=== PATIENT | female | born 1930 | race Caucasian/White ===

== ENCOUNTER 2017-07-10 08:24 | Inpatient (IN) | payer MEDICARE, OTHER ==
[~2017-07-10] VITALS: Ht 162.6 cm; Wt 63.0 kg
[2017-07-10] VITALS (14 sets, daily range): BP systolic 114–163; BP diastolic 53–72; PULSE 70–83; RESP 14–30; TEMP 98.7–101.5; O2SAT 89–95
[2017-07-10 08:56] LABS: AUTOMATED NEUTROPHIL # 9.1 TH/MM3 (1.8-7.7); BASOPHIL % 0.3 % (0.0-2.0); LYMPH % 5.7 % (9.0-44.0); LYMPHOCYTE # 0.6 TH/MM3 (1.0-4.8); MEAN CORPUSCULAR HEMOGLOBIN 28.1 PG (27.0-34.0); MEAN CORPUSCULAR HGB CONC 32.3 % (32.0-36.0); MONO % 8.8 % (0.0-8.0); NEUT % 85.2 % (16.0-70.0); PLATELET COUNT 150 TH/MM3 (150-450); RED BLOOD COUNT 3.91 MIL/MM3 (4.00-5.30); RED CELL DISTRIBUTION WIDTH 16.4 % (11.6-17.2); WHITE BLOOD COUNT 10.7 TH/MM3 (4.0-11.0)
[2017-07-10 08:57] LABS: BLOOD GAS VENOUS BASE EXCESS 5.2 mmol/L (-2-2); BLOOD GAS VENOUS HCO3 31 mmol/L (22-26); BLOOD GAS VENOUS O2 CONTENT 6.1 Vol % (9.0-17.0); BLOOD GAS VENOUS O2 HGB SAT 41 % (70-76); BLOOD GAS VENOUS PCO2 58 mmHg (44-48); BLOOD GAS VENOUS PO2 27 mmHg (35-40); BLOOD GAS VENOUS pH 7.34 (7.360-7.400); CRITICAL VALUE YES; DRAW SITE IV; LITER FLOW 6 L/M; OXYGEN DEVICE MASK; STAT YES; TEMP CORR TO 98.6
[2017-07-10 09:00] LABS: HEMO FLAGS AUTO DIFF
--- NOTE | 2017-07-10 09:00 | RADRPT ---
EXAM DATE/TIME: 07/10/2017 08:53 [place] COMPARISON: No previous studies available for comparison. INDICATIONS : Shortness of breath. MEDICAL HISTORY : Chronic obstructive pulmonary disease. Hypercholesterolemia. Congestive heart failure. Diabetes. SURGICAL HISTORY : Appendectomy. Cholecystectomy. Tonsillectomy. ENCOUNTER: Initial ACUITY: 1 day PAIN SCORE: 0/10 LOCATION: Bilateral chest FINDINGS: Portable AP view of the chest demonstrates a normal-sized cardiac silhouette with calcification of th e aorta. There is interstitial prominence bilaterally with patchy somewhat nodular airspace opacity i n the right upper to midlung zone. There is blunting of the left costophrenic sulcus. No pneumothorax is visualized. Bones and soft tissues demonstrate no acute finding. CONCLUSION: 1. Subtle patchy to mildly nodular airspace opacity in the right upper lung zone. Suggest correlating with any prior imaging studies that could confirm longer-term stability. If none are available sugge st either a followup chest x-ray to confirm resolution or followup CT. 2. Slight blunting of the left costophrenic angle may represent pleural scar or trace pleural fluid. Artie Branham MD on July 10, 2017 at 8:56 Board Certified Radiologist. This report was verified electronically.
[2017-07-10] MEDS ORDERED: MAPA325T PO (09:02)
[2017-07-10] MEDS ORDERED: ALBU0.08 NEB (09:04)
[2017-07-10] MEDS ORDERED: BISA10SU3 RECTAL (09:04)
[2017-07-10] MEDS ORDERED: CLON0.1T PO (09:04)
[2017-07-10 09:07] LABS: APTT (PATIENT) 26.1 SEC (24.3-30.1); INTERNATIONAL NORMALIZED RATIO 0.9 RATIO
--- NOTE | 2017-07-10 09:07 | PD ---
HPI Chief Complaint: Respiratory Distress Time Seen by Provider: 08:36 Travel History International Travel<30 days: No Contact w/Intl Traveler<30days: No Traveled to known affect area: No History of Present Illness HPI Patient is an 87-year-old female presents to emergency department from [facility] for evaluation of hypoxia. 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 She cannot provide any history. Per EMS the patient's sats of been in the 90s and they have been giving her breathing treatments all day yesterday and this was unsuccessful so the called 911 this morning. EMS arrived to find the patient with a room air saturation of 85%. They administered Lasix 80 mg as well as 2 DuoNeb's prior to arrival. No fever reported by EMS. PFSH Past Medical History High Cholesterol: Yes Congestive Heart Failure: Yes COPD: Yes Diabetes: Yes Patient Takes Glucophage: No Tetanus Vaccination: Unknown Influenza Vaccination: No Past Surgical History Appendectomy: Yes Cholecystectomy: Yes Hysterectomy: Yes Tonsillectomy: Yes Social History Alcohol Use: No Tobacco Use: No Substance Use: No Allergies-Medications (Allergen,Severity, Reaction): Coded Allergies: Latex, Natural Rubber (Verified Allergy, Intermediate, REDNESS, 07/10/17) Penicillins (Verified Allergy, Intermediate, HIVES, 07/10/17) Sulfa (Sulfonamide Antibiotics) (Verified Allergy, Intermediate, HIVES, 07/10/17) codeine (Verified Allergy, Intermediate, HIVES, 07/10/17) morphine (Verified Allergy, Intermediate, HIVES, 07/10/17) blueberry (Verified Allergy, Unknown, 07/10/17) tomato (Verified Allergy, Unknown, 07/10/17) Reported Meds & Prescriptions Reported Meds & Active Scripts Active Reported Triamcinolone Topical (Triamcinolone Acetonide) 0.1 % Oint 1 Applic TOPICAL BID Artificial Tears Opth Oint (White Petrolatum-Mineral Oil Opth Oint 83-15%) 83-15 % Oint 1 Applic EACH EYE HS Pull down lower eyelid & apply 1/4 inch to inside of eyelid. Xanax (Alprazolam) 0.25 Mg Tab 0.25 Mg PO Q12HR PRN Senna-Tabs (Sennosides) 8.6 Mg Tab 8.6 Mg PO BID Promethazine (Promethazine HCl) 12.5 Mg Tab 25 Mg PO Q4H PRN Potassium Chloride ER (Potassium Chloride) 10 Meq Cap 10 Meq PO BID Hildreth (Hydrocodone-Acetaminophen) 10-325 Mg Tab 1 Tab PO Q6H PRN Nitroglycerin SL (Nitroglycerin) 0.4 Mg Subl 0.4 Mg SL DIRECTED PRN ONE TABLET UNDER THE TONGUE NEEDED FOR CHEST PAIN, MAY REPEAT EVERY FIVE MINUTES FOR A TOTAL OF 3 DOSES OR CALL 911 IF NO RELIEF Mirtazapine 30 Mg Tab 30 Mg PO HS Milk of Magnesia Liq (Magnesium Hydroxide) 400 Mg/5 Ml Susp 30 Ml PO ONCE Metoprolol Tartrate 25 Mg Tab 25 Mg PO BID Metformin (Metformin HCl) 500 Mg Tab 1,000 Mg PO DAILY With a meal Levothyroxine (Levothyroxine Sodium) 100 Mcg Tab 100 Mcg PO DAILY Guaifenesin DM Liq (Guaifenesin-Dextromethorphan Liq) 10-100 Mg/5 Ml Liq 10 Ml PO QID PRN Gabapentin 300 Mg Cap 600 Mg PO QID Furosemide 40 Mg Tab 40 Mg PO DAILY Escitalopram (Escitalopram Oxalate) 20 Mg Tab 20 Mg PO DAILY Clonidine (Clonidine HCl) 0.1 Mg Tab 0.1 Mg PO Q4HR PRN Bisacodyl Supp (Bisacodyl) 10 Mg Supp 10 Mg RECTAL DAILY PRN Albuterol Neb (Albuterol Sulfate) 2.5 Mg/3 Ml Neb 2.5 Mg NEB TID NEB PRN Mapap (Acetaminophen) 325 Mg Tab 650 Mg PO Q4-6H PRN Review of Systems ROS Limitations: Altered Mental Status Physical Exam Narrative GENERAL: Well-developed well-nourished, no obvious distress, elderly woman. SKIN: Focused skin assessment warm/dry. HEAD: Atraumatic. Normocephalic. EYES: Pupils equal and round. No scleral icterus. No injection or drainage. ENT: No nasal bleeding or discharge. Mucous membranes pink and moist. NECK: Trachea midline. No JVD. CARDIOVASCULAR: Regular rate and rhythm. No murmur appreciated. RESPIRATORY: No accessory muscle use. Rales expiratory only throughout all sotelo, probably radiation from upper airway. Clear on inspiration. Breath sounds equal bilaterally. GASTROINTESTINAL: Abdomen soft, non-tender, nondistended. Hepatic and splenic margins not palpable. MUSCULOSKELETAL: No obvious deformities. No clubbing. No cyanosis. No edema. NEUROLOGICAL: Awake and alert. Follows commands in all 4 extremities, purposeful movement. Current nerves appear to be intact. GCS 14 for mild confusion.. PSYCHIATRIC: Pleasantly confused, giggling, GCS 14. Data Data Last Documented VS Vital Signs Date Time Temp Pulse Resp B/P (MAP) Pulse Ox O2 Delivery O2 Flow Rate FiO2 07/10/17 08:52 79 14 135/60 (85) 89 Non-Rebreather 15.00 07/10/17 08:31 101.5 Orders Orders Electrocardiogram (07/10/17 08:36) Complete Blood Count With Diff (07/10/17 08:36) Comprehensive Metabolic Panel (07/10/17 08:36) Prothrombin Time / Inr (Pt) (07/10/17 08:36) Act Partial Throm Time (Ptt) (07/10/17 08:36) Lactic Acid Sepsis Protocol (07/10/17 08:36) Magnesium (Mg) (07/10/17 08:36) Phosphorus (Po4) (07/10/17 08:36) Troponin I (07/10/17 08:36) Urinalysis - C+S If Indicated (07/10/17 08:36) Blood Culture (07/10/17 08:36) Chest, Single Ap (07/10/17 08:36) Blood Glucose (07/10/17 08:36) Ecg Monitoring (07/10/17 08:36) Iv Access Insert/Monitor (07/10/17 08:36) Oximetry (07/10/17 08:36) Oxygen Administration (07/10/17 08:36) Blood Gas Venous (Vbg) (07/10/17 08:36) B-Type Natriuretic Peptide (07/10/17 08:36) Vancomycin Inj (Vancomycin Inj) (07/10/17 09:15) Aztreonam Inj (Azactam Inj) (07/10/17 09:15) Urinary Catheter Management SHELLY.Q8H (07/10/17 09:05) Sodium Chlorid 0.9% 500 Ml Inj (Ns 500 M (07/10/17 10:00) Aspirin Chew (Aspirin Chew) (07/10/17 10:00) Urine Culture (07/10/17 09:40) Admit Order (Ed Use Only) (07/10/17 ) Labs Laboratory Tests Test 07/10/17 08:36 07/10/17 08:43 07/10/17 08:45 07/10/17 09:40 White Blood Count 10.7 TH/MM3 Red Blood Count 3.91 MIL/MM3 Hemoglobin 11.0 GM/DL Hematocrit 34.0 % Mean Corpuscular Volume 87.0 FL Mean Corpuscular Hemoglobin 28.1 PG Mean Corpuscular Hemoglobin Concent 32.3 % Red Cell Distribution Width 16.4 % Platelet Count 150 TH/MM3 Mean Platelet Volume 9.1 FL Neutrophils (%) (Auto) 85.2 % Lymphocytes (%) (Auto) 5.7 % Monocytes (%) (Auto) 8.8 % Eosinophils (%) (Auto) 0.0 % Basophils (%) (Auto) 0.3 % Neutrophils # (Auto) 9.1 TH/MM3 Lymphocytes # (Auto) 0.6 TH/MM3 Monocytes # (Auto) 0.9 TH/MM3 Eosinophils # (Auto) 0.0 TH/MM3 Basophils # (Auto) 0.0 TH/MM3 CBC Comment AUTO DIFF Differential Total Cells Counted 100 Neutrophils % (Manual) 70 % Band Neutrophils % 12 % Lymphocytes % 7 % Monocytes % 11 % Neutrophils # (Manual) 8.8 TH/MM3 Differential Comment FINAL DIFF MANUAL Platelet Estimate NORMAL Platelet Morphology Comment NORMAL Ovalocytes 1+ Prothrombin Time 10.0 SEC Prothromb Time International Ratio 0.9 RATIO Activated Partial Thromboplast Time 26.1 SEC Blood Urea Nitrogen 27 MG/DL Creatinine 1.36 MG/DL Random Glucose 182 MG/DL Total Protein 6.4 GM/DL Albumin 2.5 GM/DL Calcium Level 8.6 MG/DL Phosphorus Level 2.2 MG/DL Magnesium Level 1.9 MG/DL Alkaline Phosphatase 89 U/L Aspartate Amino Transf (AST/SGOT) 34 U/L Alanine Aminotransferase (ALT/SGPT) 26 U/L Total Bilirubin 0.8 MG/DL Sodium Level 136 MEQ/L Potassium Level 4.6 MEQ/L Chloride Level 98 MEQ/L Carbon Dioxide Level 30.2 MEQ/L Anion Gap 8 MEQ/L Estimat Glomerular Filtration Rate 37 ML/MIN Troponin I 0.26 NG/ML B-Type Natriuretic Peptide 323 PG/ML Lactic Acid Level 2.5 mmol/L Blood Gas Puncture Site IV Blood Gas Patient Temperature 98.6 Venous Blood pH 7.34 Venous Blood Partial Pressure CO2 58 mmHg Venous Blood Partial Pressure O2 27 mmHg Venous Blood HCO3 31 mmol/L Venous Blood Oxygen Saturation 41 % Venous Blood Oxygen Content 6.1 Vol % Venous Blood Base Excess 5.2 mmol/L Oxygen Delivery Device MASK Blood Gas Liter Flow 6 L/M Urine Color YELLOW Urine Turbidity CLEAR Urine pH 5.5 Urine Specific [place] 1.010 Urine Protein TRACE mg/dL Urine Glucose (UA) NEG mg/dL Urine Ketones NEG mg/dL Urine Occult Blood NEG Urine Nitrite NEG Urine Bilirubin NEG Urine Urobilinogen LESS THAN 2.0 MG/DL Urine Leukocyte Esterase NEG Urine RBC LESS THAN 1 /hpf Urine WBC LESS THAN 1 /hpf Urine Amorphous Sediment FEW Urine Bacteria RARE /hpf Microscopic Urinalysis Comment CATH-CULTURE IND MDM Medical Decision Making Medical Screen Exam Complete: Yes Emergency Medical Condition: Yes Differential Diagnosis Pneumonia, hypoxic respiratory failure, hypercapnic respiratory failure, COPD exacerbation. Narrative Course Patient roomed in emergency department, was started on simple mask which maintain oxygen saturation greater than 95%. She does have an acute on chronic hypercapnic respiratory failure with a pH 7.34 and a PCO2 of 58. Patient does have a minimal right upper lobe infiltrate, she was started on vancomycin and exact him given this a healthcare associated pneumonia. White blood cell count is actually normal. She was given small amount of fluid is a lactic acid is only 2.2 and she does not appear to have any hemodynamic instability. She does have a history of CHF. She has had good urine output after Tejeda catheter was replaced. Patient does have a DNR [facility] her chart from [facility]. Patient was discussed with Dr. Tolbert for admission to the ICU. Critical Care Narrative Aggregate critical care time was 35 minutes. Time to perform other separately billable procedures was not included in the critical care time. My time did not include minutes spent treating any other patients simultaneously or on activities that did not directly contribute to the patient's treatment. The services I provided to this patient were to treat and/or prevent clinically significant deterioration that could result in: , dyspnea, organ failure. I provided critical care services requiring my management, as noted below: Chart data review, documentation time, medication orders and management, vital sign assessments/reviewing monitor data, ordering and reviewing lab tests, ordering and interpreting/reviewing x-rays and diagnostic studies, care of the patient and discussion of the patient with the admitting physicians. Diagnosis Primary Impression: Respiratory failure Qualified Codes: J96.01 - Acute respiratory failure with hypoxia; J96.02 - Acute respiratory failure with hypercapnia Additional Impressions: Respiratory failure with hypoxia Qualified Codes: J96.01 - Acute respiratory failure with hypoxia Respiratory failure without hypercapnia Pneumonia Qualified Codes: J18.1 - Lobar pneumonia, unspecified organism Admitting Information Admitting Physician Requests: Admit Condition: Stable Lux Hemphill MD Jul 10, 2017 09:07
[2017-07-10] MEDS ORDERED: GABA300C5 PO (09:12)
[2017-07-10] MEDS ORDERED: SENN8.6T36 PO (09:12)
[2017-07-10] MEDS ORDERED: METO25TA3 PO (09:12)
[2017-07-10] MEDS ORDERED: LEVO100T5 PO (09:12)
[2017-07-10] MEDS ORDERED: HYDR-3366 PO (09:12)
[2017-07-10] MEDS ORDERED: MILKSUS PO (09:12)
[2017-07-10] MEDS ORDERED: ESCI20TA PO (09:12)
[2017-07-10] MEDS ORDERED: POTA10CA PO (09:12)
[2017-07-10] MEDS ORDERED: GUAISYP7 PO (09:12)
[2017-07-10] MEDS ORDERED: TRIAM.1%T TOPICAL (09:12)
[2017-07-10] MEDS ORDERED: MIRT30TA PO (09:12)
[2017-07-10] MEDS ORDERED: PROM12.54 PO (09:12)
[2017-07-10] MEDS ORDERED: FURO40TA PO (09:12)
[2017-07-10] MEDS ORDERED: WHIT15OI EACH EYE (09:12)
[2017-07-10] MEDS ORDERED: ALPR.25 PO (09:12)
[2017-07-10] MEDS ORDERED: METF500T PO (09:12)
[2017-07-10] MEDS ORDERED: NITR1SUB3 SL (09:12)
[2017-07-10 09:14] LABS: ALT (GPT) 26 U/L (10-53); ANION GAP 8 MEQ/L (5-15); AST (GOT) 34 U/L (15-37); BICARBONATE 30.2 MEQ/L (21.0-32.0); BLOOD UREA NITROGEN 27 MG/DL (7-18); CHLORIDE 98 MEQ/L (98-107); GLOMERULAR FILTRATION RATE 37 ML/MIN (>89); MAGNESIUM 1.9 MG/DL (1.5-2.5); POTASSIUM 4.6 MEQ/L (3.5-5.1); SODIUM (NA) 136 MEQ/L (136-145)
[2017-07-10] MEDS ORDERED: VANCOMYCIN INJ 1,000 MG in SODIUM CHLOR 0.9% 250 ML INJ 250 ML IV ONE (09:15)
[2017-07-10] MEDS ORDERED: AZTREONAM INJ 2,000 MG in SODIUM CHLORIDE 0.9% INJ 100 ML IV ONE (09:15)
[2017-07-10 09:18] LABS: ALKALINE PHOSPHATASE 89 U/L (45-117); TOTAL BILIRUBIN ADULT 0.8 MG/DL (0.2-1.0)
[2017-07-10 09:29] LABS: BANDS 12 % (0-6); NEUTROPHIL # MANUAL DIFF 8.8 TH/MM3 (1.8-7.7); OVALOCYTES 1+ (NORMAL); PLATELET ESTIMATE SMEAR NORMAL (NORMAL); PLATELET MORPHOLOGY NORMAL (NORMAL); POLYS (SEG NEUTROPHILS) 70 % (16-70); SCAN/DIFF FINAL DIFF MANUAL; WBC DIFF SAMPLE 100
[2017-07-10] MEDS ORDERED: SODIUM CHLORID 0.9% 500 ML INJ 500 ML IV ONE (10:00)
[2017-07-10] MEDS ORDERED: ASPIRIN 81 MG CHEW TAB CHEW ONE (10:00)
[2017-07-10 10:20] LABS: BACTERIA, URINE RARE /hpf; BLOOD, URINE NEG (NEG); GLUCOSE,URINE NEG (NEG); KETONE, URINE NEG (NEG); NITRITE,URINE NEG (NEG); PH, URINE 5.5 (5.0-8.5); URINE COLOR YELLOW (YELLW/STRAW)
[2017-07-10 10:21] LABS: COMMENT (UR) CATH-CULTURE IND; CULTURE IF INDICATED CATH CULTURE IND
[2017-07-10 10:52] LABS: LACTIC ACID GHOST NOT REPORTABLE
[2017-07-10] MEDS ORDERED: SODIUM CHLORIDE 0.9% FLUSH 10 ML FLUSH IV FLUSH PRN (11:30)
[2017-07-10] MEDS ORDERED: ACETAMINOPHEN 325 MG TAB PO PRN ×2 (11:30)
[2017-07-10] MEDS ORDERED: RESP: ALBUTEROL 2.5 MG/IPRATROPIUM 0.5 MG NEB (PRN) NEB (11:30)
[2017-07-10] MEDS ORDERED: NALOXONE HCL 0.4 MG/ML AMP IV PRN ×2 (11:30→12:45)
--- NOTE | 2017-07-10 12:01 | HHI.HP ---
[facility] Unknown Admission Diagnosis Hypoxic respiratory failure, PNA. Diagnoses: (1) HCAP (healthcare-associated pneumonia) (2) Respiratory failure with hypoxia Chief Complaint: Shortness of breath Travel History International Travel<30 Days: No Contact w/Intl Traveler <30 Da: No Traveled to Known Affected Are: No History of Present Illness Patient although can open her eyes she is unable to communicate at this time during my exam and history is obtained from ED report and chart review below: "Patient is an 87-year-old female presents to emergency department from shelter for evaluation of hypoxia. 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 She cannot provide any history. Per EMS the patient's sats of been in the 90s and they have been giving her breathing treatments all day yesterday and this was unsuccessful so the called 911 this morning. EMS arrived to find the patient with a room air saturation of 85%. They administered Lasix 80 mg as well as 2 DuoNeb's prior to arrival. No fever reported by EMS." Review of Systems ROS Limitations: Altered Mental Status Past Family Social History Past Medical History High Cholesterol: Yes Congestive Heart Failure: Yes COPD: Yes Diabetes: Yes Past Surgical History Appendectomy: Yes Cholecystectomy: Yes Hysterectomy: Yes Tonsillectomy: Yes Reported Medications Triamcinolone Topical (Triamcinolone Acetonide) 0.1 % Oint 1 Applic TOPICAL BID Artificial Tears Opth Oint (White Petrolatum-Mineral Oil Opth Oint 83-15%) 83-15 % Oint 1 Applic EACH EYE HS Pull down lower eyelid & apply 1/4 inch to inside of eyelid. Xanax (Alprazolam) 0.25 Mg Tab 0.25 Mg PO Q12HR PRN Senna-Tabs (Sennosides) 8.6 Mg Tab 8.6 Mg PO BID Promethazine (Promethazine HCl) 12.5 Mg Tab 25 Mg PO Q4H PRN Potassium Chloride ER (Potassium Chloride) 10 Meq Cap 10 Meq PO BID Mcalester (Hydrocodone-Acetaminophen) 10-325 Mg Tab 1 Tab PO Q6H PRN Nitroglycerin SL (Nitroglycerin) 0.4 Mg Subl 0.4 Mg SL DIRECTED PRN ONE TABLET UNDER THE TONGUE NEEDED FOR CHEST PAIN, MAY REPEAT EVERY FIVE MINUTES FOR A TOTAL OF 3 DOSES OR CALL 911 IF NO RELIEF Mirtazapine 30 Mg Tab 30 Mg PO HS Milk of Magnesia Liq (Magnesium Hydroxide) 400 Mg/5 Ml Susp 30 Ml PO ONCE Metoprolol Tartrate 25 Mg Tab 25 Mg PO BID Metformin (Metformin HCl) 500 Mg Tab 1,000 Mg PO DAILY With a meal Levothyroxine (Levothyroxine Sodium) 100 Mcg Tab 100 Mcg PO DAILY Guaifenesin DM Liq (Guaifenesin-Dextromethorphan Liq) 10-100 Mg/5 Ml Liq 10 Ml PO QID PRN Gabapentin 300 Mg Cap 600 Mg PO QID Furosemide 40 Mg Tab 40 Mg PO DAILY Escitalopram (Escitalopram Oxalate) 20 Mg Tab 20 Mg PO DAILY Clonidine (Clonidine HCl) 0.1 Mg Tab 0.1 Mg PO Q4HR PRN Bisacodyl Supp (Bisacodyl) 10 Mg Supp 10 Mg RECTAL DAILY PRN Albuterol Neb (Albuterol Sulfate) 2.5 Mg/3 Ml Neb 2.5 Mg NEB TI Allergies: Coded Allergies: Latex, Natural Rubber (Verified Allergy, Intermediate, REDNESS, 07/10/17) Penicillins (Verified Allergy, Intermediate, HIVES, 07/10/17) Sulfa (Sulfonamide Antibiotics) (Verified Allergy, Intermediate, HIVES, 07/10/17) codeine (Verified Allergy, Intermediate, HIVES, 07/10/17) morphine (Verified Allergy, Intermediate, HIVES, 07/10/17) blueberry (Verified Allergy, Unknown, 07/10/17) tomato (Verified Allergy, Unknown, 07/10/17) Family History Family history not relevant secondary to patient mentation and age Social History Alcohol Use: No Tobacco Use: No Substance Use: No Physical Exam Vital Signs Vital Signs Date Time Temp Pulse Resp B/P (MAP) Pulse Ox O2 Delivery O2 Flow Rate FiO2 07/10/17 08:52 79 14 135/60 (85) 89 Non-Rebreather 15.00 07/10/17 08:51 87 Venturi Mask 7.00 07/10/17 08:47 84 Nasal Cannula 6.00 07/10/17 08:44 90 Nasal Cannula 2.00 07/10/17 08:40 83 14 93 Aerosol Mask 10.00 07/10/17 08:31 101.5 83 20 131/72 (91) Physical Exam GENERAL: This is an elderly patient appears to be in no acute distress SKIN: No rashes, ecchymoses or lesions. Cool and dry. HEAD: Atraumatic. Normocephalic. No temporal or scalp tenderness. EYES: Pupils equal round and reactive. Extraocular motions intact. No scleral icterus. No injection or drainage. ENT: Nose without bleeding, purulent drainage or septal hematoma. Throat without erythema, tonsillar hypertrophy or exudate. Uvula midline. Airway patent. NECK: Trachea midline. No JVD or lymphadenopathy. Supple, nontender, no meningeal signs. CARDIOVASCULAR: Regular rate and rhythm without murmurs, gallops, or rubs. RESPIRATORY: Clear to auscultation. Breath sounds decreased bilaterally. No wheezes, rales, or rhonchi. GASTROINTESTINAL: Abdomen soft, non-tender, nondistended. No hepato-splenomegaly , or palpable masses. No guarding. MUSCULOSKELETAL: Extremities without clubbing, cyanosis, or edema. No joint tenderness, effusion, or edema noted. No calf tenderness. Negative Homans sign bilaterally. NEUROLOGICAL: Lethargic and does not follow commands Motor and sensory grossly within normal limits. Laboratory Laboratory Tests Test 07/10/17 08:36 07/10/17 08:43 07/10/17 08:45 07/10/17 09:40 White Blood Count 10.7 Red Blood Count 3.91 Hemoglobin 11.0 Hematocrit 34.0 Mean Corpuscular Volume 87.0 Mean Corpuscular Hemoglobin 28.1 Mean Corpuscular Hemoglobin Concent 32.3 Red Cell Distribution Width 16.4 Platelet Count 150 Mean Platelet Volume 9.1 Neutrophils (%) (Auto) 85.2 Lymphocytes (%) (Auto) 5.7 Monocytes (%) (Auto) 8.8 Eosinophils (%) (Auto) 0.0 Basophils (%) (Auto) 0.3 Neutrophils # (Auto) 9.1 Lymphocytes # (Auto) 0.6 Monocytes # (Auto) 0.9 Eosinophils # (Auto) 0.0 Basophils # (Auto) 0.0 CBC Comment AUTO DIFF Differential Total Cells Counted 100 Neutrophils % (Manual) 70 Band Neutrophils % 12 Lymphocytes % 7 Monocytes % 11 Neutrophils # (Manual) 8.8 Differential Comment FINAL DIFF MANUAL Platelet Estimate NORMAL Platelet Morphology Comment NORMAL Ovalocytes 1+ Prothrombin Time 10.0 Prothromb Time International Ratio 0.9 Activated Partial Thromboplast Time 26.1 Blood Urea Nitrogen 27 Creatinine 1.36 Random Glucose 182 Total Protein 6.4 Albumin 2.5 Calcium Level 8.6 Phosphorus Level 2.2 Magnesium Level 1.9 Alkaline Phosphatase 89 Aspartate Amino Transf (AST/SGOT) 34 Alanine Aminotransferase (ALT/SGPT) 26 Total Bilirubin 0.8 Sodium Level 136 Potassium Level 4.6 Chloride Level 98 Carbon Dioxide Level 30.2 Anion Gap 8 Estimat Glomerular Filtration Rate 37 Troponin I 0.26 B-Type Natriuretic Peptide 323 Lactic Acid Level 2.5 Blood Gas Puncture Site IV Blood Gas Patient Temperature 98.6 Venous Blood pH 7.34 Venous Blood Partial Pressure CO2 58 Venous Blood Partial Pressure O2 27 Venous Blood HCO3 31 Venous Blood Oxygen Saturation 41 Venous Blood Oxygen Content 6.1 Venous Blood Base Excess 5.2 Oxygen Delivery Device MASK Blood Gas Liter Flow 6 Urine Color YELLOW Urine Turbidity CLEAR Urine pH 5.5 Urine Specific Letcher 1.010 Urine Protein TRACE Urine Glucose (UA) NEG Urine Ketones NEG Urine Occult Blood NEG Urine Nitrite NEG Urine Bilirubin NEG Urine Urobilinogen LESS THAN 2.0 Urine Leukocyte Esterase NEG Urine RBC LESS THAN 1 Urine WBC LESS THAN 1 Urine Amorphous Sediment FEW Urine Bacteria RARE Microscopic Urinalysis Comment CATH-CULTURE IND Date/Time Source Procedure Growth Status 07/10/17 08:43 Blood Peripheral Aerobic Blood Culture Pending Received 07/10/17 08:43 Blood Peripheral Anaerobic Blood Culture Pending Received 07/10/17 09:40 Urine Clean Catch Urine Culture Pending Received Result Diagram: 07/10/17 0836 07/10/17 0836 Imaging Last Impressions Chest X-Ray 07/10/17835 Signed Impressions: Service Date/Time: Monday, July 10, 2017 08:53 - CONCLUSION: 1. Subtle patchy to mildly nodular airspace opacity in the right upper lung zone. Suggest correlating with any prior imaging studies that could confirm longer-term stability. If none are available suggest either a followup chest x-ray to confirm resolution or followup CT. 2. Slight blunting of the left costophrenic angle may represent pleural scar or trace pleural fluid. Artie Branham MD Septic Shock Reassessment Heart: Regular rate and rhythm Lungs: Diminished Skin: Warm Capillary Refill: >2 seconds Caprini VTE Risk Assessment Caprini VTE Risk Assessment: Mod/High Risk (score >= 2) Caprini Risk Assessment Model Point Value = 1 Point Value = 2 Point Value = 3 Point Value = 5 Age 41-60 Minor surgery BMI > 25 kg/m2 Swollen legs Varicose veins or History of unexplained or recurrent spontaneous Oral contraceptives or hormone replacement Sepsis (< 1 month) Serious lung disease, including pneumonia (< 1 month) Abnormal pulmonary function Acute myocardial infarction Congestive heart failure (< 1 month) History of inflammatory bowel disease Medical patient at bed rest Age 61-74 Arthroscopic surgery Major open surgery (> 45 min) Laparoscopic surgery (> 45 min) Malignancy Confined to bed (> 72 hours) Immobilizing plaster cast Central venous access Age >= 75 History of VTE Family history of VTE Factor V Leiden Prothrombin [id number] Lupus anticoagulant Anticardiolipin antibodies Elevated serum homocysteine Heparin-induced thrombocytopenia Other congenital or acquired thrombophilia Stroke (< 1 month) Elective arthroplasty Hip, pelvis, or leg fracture Acute spinal cord injury (< 1 month) Prophylaxis Regimen Total Risk Factor Score Risk Level Prophylaxis Regimen 0-1 Low Early ambulation 2 Moderate Order ONE of the following: *Sequential Compression Device (SCD) *Heparin 5000 units SQ BID 3-4 Higher Order ONE of the following medications: *Heparin 5000 units SQ TID *Enoxaparin/Lovenox 40 mg SQ daily (WT < 150 kg, CrCl > 30 mL/min) *Enoxaparin/Lovenox 30 mg SQ daily (WT < 150 kg, CrCl > 10-29 mL/min) *Enoxaparin/Lovenox 30 mg SQ BID (WT < 150 kg, CrCl > 30 mL/min) AND/OR *Sequential Compression Device (SCD) 5 or more Highest Order ONE of the following medications: *Heparin 5000 units SQ TID (Preferred with Epidurals) *Enoxaparin/Lovenox 40 mg SQ daily (WT < 150 kg, CrCl > 30 mL/min) *Enoxaparin/Lovenox 30 mg SQ daily (WT < 150 kg, CrCl > 10-29 mL/min) *Enoxaparin/Lovenox 30 mg SQ BID (WT < 150 kg, CrCl > 30 mL/min) AND *Sequential Compression Device (SCD) Assessment and Plan Problem List: (1) Acute metabolic encephalopathy ICD Code: G93.41 - Metabolic encephalopathy (2) Respiratory failure with hypoxia ICD Code: J96.91 - Respiratory failure, unspecified with hypoxia Status: Acute (3) HCAP (healthcare-associated pneumonia) ICD Code: J18.9 - Pneumonia, unspecified organism (4) Lactic acid acidosis ICD Code: E87.2 - Acidosis (5) Hypothyroidism ICD Code: E03.9 - Hypothyroidism, unspecified (6) Diabetes mellitus, type 2 ICD Code: E11.9 - Type 2 diabetes mellitus without complications Assessment and Plan 87-year-old female with Acute respiratory failure with hypoxia Healthcare associated pneumonia Chest x-ray noted and review by me with evidence of pulmonary infiltrate right lung ABG with evidence of hypoxia Currently on nonrebreather and consider BiPAP when necessary Status post vancomycin and Azactam, will continue current antibiotics pending culture reports Check urinary pneumococcal and Legionella antigen as well as flu antigen DuoNeb when necessary and maintain oxygen saturation above 92% Metabolic encephalopathy Multifactorial May be secondary to current pneumonia versus respiratory failure versus others Avoid all FRAME ASSEMBLER depressant medication Check EEG Elevated troponin I Maybe secondary to CHF No evidence of ischemia, however will rule out ACS per protocol with serial cardiac enzyme and EKGs Lactic acidosis Secondary to above infectious process Monitor lactic acid Acute renal failure Patient baseline not known Given gentle IV fluid hydration, however monitor for sign of volume overload Diabetes type 2 Labile blood glucose Start insulin sliding scale and resume outpatient medication when patient able to tolerate by mouth Hypertension Resume Lopressor History of CHF Chest x-ray without any evidence of pulmonary congestion despite elevated BNP Resume Lasix Hypothyroidism Resume Synthroid Check TSH and free T4 DVT prophylaxis: Bilateral SCDs Admit patient to ICU Total critical care time spent 80 minutes Code Status DO NOT RESUSCITATE Discussed Condition With ED physician Physician Certification 2 Midnight Certification Type: Admission for Inpatient Services Order for Inpatient Services The services are ordered in accordance with Medicare regulations or non- Medicare payer requirements, as applicable. In the case of services not specified as inpatient-only, they are appropriately provided as inpatient services in accordance with the 2-midnight benchmark. Estimated LOS (days): 2 days is the estimated time the patient will need to remain in the hospital, assuming treatment plan goals are met and no additional complications. Post-Hospital Plan: Not yet determined Problem Qualifiers (1) Respiratory failure with hypoxia: Qualified Codes: J96.01 - Acute respiratory failure with hypoxia Anurag Tolbert MD Jul 10, 2017 12:01
[2017-07-10] MEDS ORDERED: DEXTROSE 50% IN WATER 50 ML VIAL(D50) IV PRN (12:15)
[2017-07-10] MEDS ORDERED: GLUCAGON 1 MG/ML VIAL OTHER PRN (12:15)
[2017-07-10] MEDS ORDERED: Vancomycin Consult Pharmacy 1 EA OTHER SCH (12:45)
[2017-07-10] MEDS: RESP: ALBUTEROL 2.5 MG/IPRATROPIUM 0.5 MG NEB (SCH) NEB ×2 (14:30→20:00)
[2017-07-10] MEDS: INSULIN ASPART SUPPLEMENTAL SCALE SQ SCH ×2 (16:17→21:00)
[2017-07-10] MEDS ORDERED: FUROSEMIDE 40 MG/4 ML VIAL IV PUSH ONE (20:00)
[2017-07-10] MEDS: AZTREONAM INJ 2,000 MG in SODIUM CHLORIDE 0.9% INJ 100 ML IV SCH (21:28)
[2017-07-10] MEDS: METOPROLOL TARTRATE 25 MG TAB PO SCH (21:28)
[2017-07-10] MEDS: POTASSIUM CHLORIDE 10 MEQ CAP PO SCH (21:28)
[2017-07-10] MEDS: SODIUM CHLORIDE 0.9% FLUSH 10 ML FLUSH IV FLUSH SCH (21:28)
[2017-07-11] VITALS (27 sets, daily range): BP systolic 110–154; BP diastolic 54–101; PULSE 59–74; RESP 13–36; TEMP 97.5–99.3; O2SAT 88–100
[2017-07-11 01:01] LABS: FREE T4 1.15 NG/DL (0.76-1.46)
[2017-07-11 05:47] LABS: AUTOMATED NEUTROPHIL # 10.7 TH/MM3 (1.8-7.7); BASOPHIL % 0.3 % (0.0-2.0); EOSINOPHIL % 0.1 % (0.0-4.0); LYMPH % 3.6 % (9.0-44.0); LYMPHOCYTE # 0.4 TH/MM3 (1.0-4.8); MEAN CELL VOLUME 88.1 FL (80.0-100.0); MEAN CORPUSCULAR HEMOGLOBIN 27.8 PG (27.0-34.0); MEAN CORPUSCULAR HGB CONC 31.6 % (32.0-36.0); MONO % 5.4 % (0.0-8.0); NEUT % 90.6 % (16.0-70.0); PLATELET COUNT 164 TH/MM3 (150-450); RED BLOOD COUNT 3.86 MIL/MM3 (4.00-5.30); RED CELL DISTRIBUTION WIDTH 16.6 % (11.6-17.2); WHITE BLOOD COUNT 11.8 TH/MM3 (4.0-11.0)
[2017-07-11] MEDS: INSULIN ASPART SUPPLEMENTAL SCALE SQ SCH ×6 (05:59→20:05)
[2017-07-11] MEDS: LEVOTHYROXINE SODIUM 100 MCG TAB PO SCH (05:59)
[2017-07-11 06:07] LABS: HEMO FLAGS AUTO DIFF
[2017-07-11 06:11] LABS: ALT (GPT) 20 U/L (10-53); ANION GAP 6 MEQ/L (5-15); AST (GOT) 19 U/L (15-37); BICARBONATE 32.3 MEQ/L (21.0-32.0); BLOOD UREA NITROGEN 32 MG/DL (7-18); CHLORIDE 105 MEQ/L (98-107); GLOMERULAR FILTRATION RATE 44 ML/MIN (>89); POTASSIUM 4.6 MEQ/L (3.5-5.1); SODIUM (NA) 143 MEQ/L (136-145)
[2017-07-11 06:13] LABS: ALKALINE PHOSPHATASE 89 U/L (45-117); TOTAL BILIRUBIN ADULT 0.7 MG/DL (0.2-1.0)
[2017-07-11] MEDS: RESP: ALBUTEROL 2.5 MG/IPRATROPIUM 0.5 MG NEB (SCH) NEB ×3 (08:23→20:29)
[2017-07-11] MEDS ORDERED: VANCOMYCIN INJ 1,000 MG in SODIUM CHLOR 0.9% 250 ML INJ 250 ML IV SCH (09:00)
[2017-07-11] MEDS: SODIUM CHLORIDE 0.9% FLUSH 10 ML FLUSH IV FLUSH SCH ×2 (09:00→20:06)
[2017-07-11] MEDS: METOPROLOL TARTRATE 25 MG TAB PO SCH ×2 (09:11→20:05)
[2017-07-11] MEDS: FUROSEMIDE 40 MG TAB PO SCH (09:11)
[2017-07-11] MEDS: POTASSIUM CHLORIDE 10 MEQ CAP PO SCH ×2 (09:12→20:06)
[2017-07-11] MEDS: metFORMIN HCL 500 MG TAB PO SCH (09:12)
[2017-07-11] MEDS: AZTREONAM INJ 2,000 MG in SODIUM CHLORIDE 0.9% INJ 100 ML IV SCH ×2 (09:12→20:04)
[2017-07-11 09:24] LABS: BANDS 27 % (0-6); METAMYELOCYTES 1 % (0-1); MYELOCYTES 1 % (0-0); NEUTROPHIL # MANUAL DIFF 11.6 TH/MM3 (1.8-7.7); PLATELET ESTIMATE SMEAR NORMAL (NORMAL); PLATELET MORPHOLOGY NORMAL (NORMAL); POLYS (SEG NEUTROPHILS) 68 % (16-70); PROMYELOCYTES 1 % (0-0); SCAN/DIFF FINAL DIFF MANUAL; WBC DIFF SAMPLE 100
--- NOTE | 2017-07-11 09:53 | EKG ---
Date Performed: 07/10/2017 Time Performed: 08:36:53 PTAGE: 87 years EKG: Sinus rhythm WITH MARKED RHYTHM IRREGULARITY, POSSIBLE NON-CONDUCTED PAC, SA BLOCK, AV BLOCK, OR SINUS PAUSE BORD NERI RIGHT AXIS DEVIATION INCOMPLETE RIGHT BUNDLE BRANCH BLOCK SEPTAL MYOCARDIAL INFARCTION ABNORMA L ECG INTERPRETATION BASED ON A DEFAULT AGE OF 40 YEARS PREVIOUS TRACING : 06/13/2001 12.46 Since prior tracing, the non-conducted PAC is new. DOCTOR: Maxx Fernando Interpretating Date/Time 07/11/2017 09:52:23
--- NOTE | 2017-07-11 09:53 | EKG ---
Date Performed: 07/10/2017 Time Performed: 20:41:49 PTAGE: 87 years EKG: Sinus rhythm INCOMPLETE RIGHT BUNDLE BRANCH BLOCK MODERATE T-WAVE ABNORMALITY, CONSIDER ANTERIOR ISCHEMIA ABNORMA L ECG PREVIOUS TRACING : 07/10/2017 08.36 Since prior tracing, anterior T-wave changes are new and no nspecific, consider ischemia. DOCTOR: Maxx Fernando Interpretating Date/Time 07/11/2017 09:52:55
--- NOTE | 2017-07-11 11:02 | HHI.PR ---
Subjective Remarks Follow-up acute hypoxic respiratory failure/HCAP 07/11/17-patient seen and examined, currently on partial nonrebreather. No acute event overnight and afebrile. Alert Objective Vitals Vital Signs Date Time Temp Pulse Resp B/P (MAP) Pulse Ox O2 Delivery O2 Flow Rate FiO2 07/11/17 09:00 74 30 133/60 (84) 97 07/11/17 08:23 97 Non-Rebreather 100 07/11/17 08:00 97.5 67 34 126/58 (80) 96 07/11/17 07:01 67 23 136/61 (86) 98 07/11/17 07:00 67 22 98 07/11/17 06:00 64 07/11/17 04:00 98.5 66 20 128/59 (82) 99 07/11/17 04:00 66 07/11/17 02:00 61 07/11/17 00:00 99.3 61 18 110/54 (72) 97 07/11/17 00:00 65 07/10/17 22:00 76 07/10/17 21:05 89 Non-Rebreather 15.00 100 07/10/17 20:00 81 07/10/17 20:00 100.2 81 20 116/56 (76) 07/10/17 18:00 79 07/10/17 16:00 98.7 82 30 163/70 (101) 91 07/10/17 16:00 82 07/10/17 14:30 92 Non-Rebreather 100 07/10/17 14:00 76 07/10/17 13:34 98.9 74 23 135/64 (87) 95 07/10/17 13:24 74 07/10/17 12:29 07/10/17 12:13 99.9 70 16 114/53 (73) 95 Non-Rebreather 15.00 07/10/17 11:00 72 16 125/57 (79) 94 Non-Rebreather 15.00 I/O 07/10/17 07/10/17 07/10/17 07/11/17 07/11/17 07/11/17 07:00 15:00 23:00 07:00 15:00 23:00 Intake Total 850 ml 100 ml 150 ml 100 ml Output Total 1300 ml 1650 ml 350 ml Balance -450 ml -1550 ml -200 ml 100 ml Intake Oral 150 ml IV Total 850 ml 100 ml 100 ml Output Urine Total 1300 ml 1650 ml 350 ml # Voids 0 # Bowel Movements 0 Result Diagram: 07/11/177 07/11/17 0457 Imaging Last Impressions Chest X-Ray 07/10/17 0836 Signed Impressions: Service Date/Time: Monday, July 10, 2017 08:53 - CONCLUSION: 1. Subtle patchy to mildly nodular airspace opacity in the right upper lung zone. Suggest correlating with any prior imaging studies that could confirm longer-term stability. If none are available suggest either a followup chest x-ray to confirm resolution or followup CT. 2. Slight blunting of the left costophrenic angle may represent pleural scar or trace pleural fluid. Artie Branham MD Objective Remarks GENERAL: NAD SKIN: Warm and dry. HEAD: Normocephalic. EYES: No scleral icterus. No injection or drainage. NECK: Supple, trachea midline. No JVD or lymphadenopathy. CARDIOVASCULAR: Regular rate and rhythm without murmurs, gallops, or rubs. RESPIRATORY: Breath sounds decreased bilaterally. No accessory muscle use. GASTROINTESTINAL: Abdomen soft, non-tender, nondistended. MUSCULOSKELETAL: No cyanosis, or edema. BACK: Nontender without obvious deformity. No CVA tenderness. A/P Problem List: (1) Acute metabolic encephalopathy ICD Code: G93.41 - Metabolic encephalopathy (2) Respiratory failure with hypoxia ICD Code: J96.91 - Respiratory failure, unspecified with hypoxia Status: Acute (3) HCAP (healthcare-associated pneumonia) ICD Code: J18.9 - Pneumonia, unspecified organism (4) Lactic acid acidosis ICD Code: E87.2 - Acidosis (5) Hypothyroidism ICD Code: E03.9 - Hypothyroidism, unspecified (6) Diabetes mellitus, type 2 ICD Code: E11.9 - Type 2 diabetes mellitus without complications Assessment and Plan 87-year-old female with Acute respiratory failure with hypoxia Healthcare associated pneumonia Chest x-ray with evidence of pulmonary infiltrate right lung ABG with evidence of hypoxia Currently on partial nonrebreather and consider BiPAP when necessary Currently on vancomycin and Azactam pending culture reports urinary pneumococcal and Legionella antigen as well as flu antigen all negative DuoNeb when necessary and maintain oxygen saturation above 92% Metabolic encephalopathy Multifactorial May be secondary to current pneumonia versus respiratory failure versus others Avoid all PROGRAM LEAD depressant medication EEG pending Elevated troponin I Maybe secondary to CHF No evidence of ischemia, and ACS ruled out per protocol with serial cardiac enzyme and EKGs Lactic acidosis Secondary to above infectious process Monitor lactic acid Acute renal failure Patient baseline not known Continue gentle IV fluid hydration, however monitor for sign of volume overload Diabetes type 2 Labile blood glucose Continue insulin sliding scale and outpatient medications Hypertension Continue Lopressor History of CHF Chest x-ray without any evidence of pulmonary congestion despite elevated BNP Continue Lasix Hypothyroidism Continue Synthroid TSH and free T4 noted DVT prophylaxis: Bilateral SCDs Problem Qualifiers (1) Respiratory failure with hypoxia: Qualified Codes: J96.01 - Acute respiratory failure with hypoxia Anurag Tolbert MD Jul 11, 2017 11:02
[2017-07-11 13:04] LABS: HEMOGLOBIN A1b 2.3 %; HEMOGLOBIN Ao 82.9 %; HEMOGLOBIN LA1C 2.6 %; HEMOGLOBIN P3 5.9 %
--- NOTE | 2017-07-11 13:26 | MG ---
cc: CARLTON MANCINI MD Sex: F DATE OF STUDY: 07/11/2017 [id number] DATE OF : 1930 HISTORY: An 87 year-old female, with history of hypoxemia, mild confusion from the retirement. DESCRIPTION: Posterior rhythm demonstrates 5-7 Hz activity, 20-50 microvolts, low amplitude theta frontal channels. EEG variability reactivity. Occasional bursts 2-3 Hz delta activity occurring. Single lead EKG showing sinus rhythm with premature contractions. Limited driving with photic stimulation. INTERPRETATION Mild encephalopathy. Clinical correlation. Carlton Mancini MD MG/DAVID /12:52 PM /1:21 PM
[2017-07-11] MEDS: VANCOMYCIN INJ 1,250 MG in SODIUM CHLOR 0.9% 250 ML INJ 250 ML IV SCH (20:05)
[2017-07-12] VITALS (28 sets, daily range): BP systolic 143–203; BP diastolic 55–122; PULSE 58–83; RESP 16–40; TEMP 98–98.9; O2SAT 87–98
[2017-07-12] MEDS ORDERED: hydrALAZINE HCL 25 MG TAB PO ONE (04:00)
[2017-07-12] MEDS: LEVOTHYROXINE SODIUM 100 MCG TAB PO SCH (06:00)
[2017-07-12] MEDS: INSULIN ASPART SUPPLEMENTAL SCALE SQ SCH ×4 (07:00→21:00)
--- NOTE | 2017-07-12 08:17 | HHI.PR ---
Subjective Remarks Follow-up acute hypoxic respiratory failure/HCAP 07/11/17-patient seen and examined, currently on partial nonrebreather. No acute event overnight and afebrile. Alert 07/12/17-patient seen and examined. She is refusing to eat but only drinks. Did well yesterday on 5 L of oxygen at night however she has to be back on partial rebreather this a.m. This morning She is alert and oriented to self and also knows who the president is. BP slightly up Objective Vitals Vital Signs Date Time Temp Pulse Resp B/P (MAP) Pulse Ox O2 Delivery O2 Flow Rate FiO2 07/12/17 06:00 70 07/12/17 04:00 98.9 64 20 186/81 (116) 93 07/12/17 04:00 64 07/12/17 02:00 62 07/12/17 00:00 98.4 62 17 143/55 (84) 93 07/12/17 00:00 65 07/11/17 22:00 65 07/11/17 20:29 97 Partial Rebreather 15.00 07/11/17 20:00 98.4 62 18 154/68 (96) 93 07/11/17 20:00 62 07/11/17 18:00 63 07/11/17 17:01 65 19 146/66 (92) 91 07/11/17 17:00 65 15 91 07/11/17 16:00 65 07/11/17 16:00 98.5 65 36 122/68 (86) 88 07/11/17 15:33 63 17 136/63 (87) 96 07/11/17 15:01 62 26 130/101 (111) 98 07/11/17 15:00 65 19 100 07/11/17 14:01 59 24 141/63 (89) 100 07/11/17 14:00 60 07/11/17 14:00 59 20 100 07/11/17 13:01 66 15 113/55 (74) 92 07/11/17 13:00 66 13 92 07/11/17 12:00 97.8 72 20 144/67 (92) 99 07/11/17 12:00 72 07/11/17 11:01 70 18 131/60 (83) 97 07/11/17 11:00 70 19 98 07/11/17 10:00 72 07/11/17 10:00 72 18 142/65 (90) 94 07/11/17 09:00 74 30 133/60 (84) 97 07/11/17 08:23 97 Non-Rebreather 100 I/O 07/11/17 07/11/17 07/11/17 07/12/17 07/12/17 07/12/17 07:00 15:00 23:00 07:00 15:00 23:00 Intake Total 150 ml 100 ml 420 ml 602.5 ml Output Total 350 ml 450 ml 475 ml Balance -200 ml 100 ml -30 ml 127.5 ml Intake Oral 150 ml 320 ml 240 ml IV Total 100 ml 100 ml 362.5 ml Output Urine Total 350 ml 450 ml 475 ml # Bowel Movements 1 Result Diagram: 07/11/1745607/11/17456 Objective Remarks GENERAL: NAD SKIN: Warm and dry. HEAD: Normocephalic. EYES: No scleral icterus. No injection or drainage. NECK: Supple, trachea midline. No JVD or lymphadenopathy. CARDIOVASCULAR: Regular rate and rhythm without murmurs, gallops, or rubs. RESPIRATORY: Breath sounds decreased bilaterally. No accessory muscle use. GASTROINTESTINAL: Abdomen soft, non-tender, nondistended. MUSCULOSKELETAL: No cyanosis, or edema. BACK: Nontender without obvious deformity. No CVA tenderness. Procedures none A/P Problem List: (1) Acute metabolic encephalopathy ICD Code: G93.41 - Metabolic encephalopathy (2) Respiratory failure with hypoxia ICD Code: J96.91 - Respiratory failure, unspecified with hypoxia Status: Acute (3) HCAP (healthcare-associated pneumonia) ICD Code: J18.9 - Pneumonia, unspecified organism (4) Lactic acid acidosis ICD Code: E87.2 - Acidosis (5) Hypothyroidism ICD Code: E03.9 - Hypothyroidism, unspecified (6) Diabetes mellitus, type 2 ICD Code: E11.9 - Type 2 diabetes mellitus without complications Assessment and Plan 87-year-old female with Acute respiratory failure with hypoxia-improving Healthcare associated pneumonia Chest x-ray with evidence of pulmonary infiltrate right lung ABG with evidence of hypoxia Currently on partial nonrebreather Currently on vancomycin and Azactam; culture so far negative to date urinary pneumococcal and Legionella antigen as well as flu antigen all negative DuoNeb when necessary and maintain oxygen saturation above 92% Metabolic encephalopathy-resolved Multifactorial May be secondary to current pneumonia versus respiratory failure versus others 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 EEG noted in review Elevated troponin I Maybe secondary to CHF No evidence of ischemia, and ACS ruled out per protocol with serial cardiac enzyme and EKGs Lactic acidosis Secondary to above infectious process Monitor lactic acid Acute renal failure Patient baseline not known Continue gentle IV fluid hydration, however monitor for sign of volume overload Diabetes type 2 Labile blood glucose Continue insulin sliding scale and outpatient medications Hypertension Labile BP Increased Lopressor to 50 mg by mouth twice a day, hydralazine when necessary History of CHF Chest x-ray without any evidence of pulmonary congestion despite elevated BNP Continue Lasix Hypothyroidism Continue Synthroid TSH and free T4 noted DVT prophylaxis: Bilateral SCDs Problem Qualifiers (1) Respiratory failure with hypoxia: Qualified Codes: J96.01 - Acute respiratory failure with hypoxia Anurag Tolbert MD Jul 12, 2017 08:17
[2017-07-12] MEDS: RESP: ALBUTEROL 2.5 MG/IPRATROPIUM 0.5 MG NEB (SCH) NEB ×3 (08:31→20:00)
[2017-07-12] MEDS: SODIUM CHLORIDE 0.9% FLUSH 10 ML FLUSH IV FLUSH SCH ×2 (09:00→20:36)
[2017-07-12] MEDS: AZTREONAM INJ 2,000 MG in SODIUM CHLORIDE 0.9% INJ 100 ML IV SCH ×2 (09:56→20:35)
[2017-07-12] MEDS: FUROSEMIDE 40 MG TAB PO SCH (09:56)
[2017-07-12] MEDS: POTASSIUM CHLORIDE 10 MEQ CAP PO SCH ×2 (09:56→20:35)
[2017-07-12] MEDS: metFORMIN HCL 500 MG TAB PO SCH (09:57)
[2017-07-12] MEDS: METOPROLOL TARTRATE 50 MG TAB PO SCH ×2 (09:57→20:35)
[2017-07-12 10:53] LABS: AUTOMATED NEUTROPHIL # 8.3 TH/MM3 (1.8-7.7); BASOPHIL % 0.2 % (0.0-2.0); EOSINOPHIL # 0.2 TH/MM3 (0-0.4); EOSINOPHIL % 2.5 % (0.0-4.0); HEMATOCRIT 38.1 % (35.0-46.0); LYMPH % 7.2 % (9.0-44.0); LYMPHOCYTE # 0.7 TH/MM3 (1.0-4.8); MEAN CELL VOLUME 87.9 FL (80.0-100.0); MEAN CORPUSCULAR HEMOGLOBIN 28.1 PG (27.0-34.0); NEUT % 84.1 % (16.0-70.0); PLATELET COUNT 199 TH/MM3 (150-450); RED BLOOD COUNT 4.33 MIL/MM3 (4.00-5.30); RED CELL DISTRIBUTION WIDTH 16.7 % (11.6-17.2); WHITE BLOOD COUNT 9.9 TH/MM3 (4.0-11.0)
[2017-07-12 10:59] LABS: HEMO FLAGS AUTO DIFF
[2017-07-12 11:21] LABS: BICARBONATE 34.8 MEQ/L (21.0-32.0); POTASSIUM 4.2 MEQ/L (3.5-5.1)
[2017-07-12 11:58] LABS: BANDS 10 % (0-6); EOSINOPHILS 3 % (0-4); METAMYELOCYTES 2 % (0-1); NEUTROPHIL # MANUAL DIFF 8.4 TH/MM3 (1.8-7.7); PLASMA CELLS 1 % (0-0); POLYS (SEG NEUTROPHILS) 73 % (16-70); WBC DIFF SAMPLE 100
[2017-07-12 11:59] LABS: PLATELET ESTIMATE SMEAR NORMAL (NORMAL); PLATELET MORPHOLOGY NORMAL (NORMAL); SCAN/DIFF FINAL DIFF MANUAL
[2017-07-12] MEDS: hydrALAZINE HCL 20 MG/ML VIAL IV PUSH PRN ×2 (16:22→20:33)
[2017-07-12] MEDS: ONDANSETRON HCL 4 MG/2 ML VIAL IVP PRN (21:34)
[2017-07-13] VITALS (14 sets, daily range): BP systolic 150–177; BP diastolic 75–99; PULSE 70–90; RESP 18–29; TEMP 98.3–98.9; O2SAT 95–99
[2017-07-13] MEDS: hydrALAZINE HCL 20 MG/ML VIAL IV PUSH PRN ×4 (02:43→12:27)
[2017-07-13] MEDS: LEVOTHYROXINE SODIUM 100 MCG TAB PO SCH (05:32)
[2017-07-13] MEDS: INSULIN ASPART SUPPLEMENTAL SCALE SQ SCH ×4 (07:00→21:00)
[2017-07-13] MEDS: POTASSIUM CHLORIDE 10 MEQ CAP PO SCH ×2 (08:06→20:13)
[2017-07-13] MEDS: FUROSEMIDE 40 MG TAB PO SCH (08:06)
[2017-07-13] MEDS: VANCOMYCIN INJ 1,250 MG in SODIUM CHLOR 0.9% 250 ML INJ 250 ML IV SCH (08:07)
[2017-07-13] MEDS: SODIUM CHLORIDE 0.9% FLUSH 10 ML FLUSH IV FLUSH SCH ×2 (08:07→20:13)
[2017-07-13] MEDS: METOPROLOL TARTRATE 50 MG TAB PO SCH ×2 (08:07→20:12)
[2017-07-13] MEDS: AZTREONAM INJ 2,000 MG in SODIUM CHLORIDE 0.9% INJ 100 ML IV SCH ×2 (08:08→20:13)
[2017-07-13] MEDS: metFORMIN HCL 500 MG TAB PO SCH (08:11)
--- NOTE | 2017-07-13 08:20 | HHI.PR ---
Subjective Remarks Follow-up acute hypoxic respiratory failure/HCAP 07/11/17-patient seen and examined, currently on partial nonrebreather. No acute event overnight and afebrile. Alert 07/12/17-patient seen and examined. She is refusing to eat but only drinks. Did well yesterday on 5 L of oxygen at night however she has to be back on partial rebreather this a.m. This morning She is alert and oriented to self and also knows who the president is. BP slightly up 07/13/17-patient seen and examined, currently on soft restraint upper extremities. Multiple loose stool overnight. Satting on 3-4L NC Objective Vitals Vital Signs Date Time Temp Pulse Resp B/P (MAP) Pulse Ox O2 Delivery O2 Flow Rate FiO2 07/13/17 06:00 87 07/13/17 04:52 94 Nasal Cannula 4.00 07/13/17 04:00 98.9 87 23 154/81 (105) 96 07/13/17 04:00 87 07/13/17 02:00 79 07/13/17 00:00 73 07/13/17 00:00 98.9 73 29 176/75 (108) 98 07/12/17 22:00 79 07/12/17 21:45 92 Nasal Cannula 6.00 07/12/17 20:00 83 07/12/17 20:00 98.3 83 40 197/107 (137) 98 07/12/17 18:00 76 07/12/17 16:33 71 16 173/74 (107) 96 07/12/17 16:22 63 18 193/81 (118) 97 07/12/17 16:04 64 16 199/85 (123) 96 07/12/17 16:00 98.1 64 18 200/84 (122) 94 07/12/17 16:00 64 07/12/17 15:01 61 19 178/74 (108) 95 07/12/17 15:00 60 18 95 07/12/17 14:03 60 18 179/75 (109) 94 07/12/17 14:00 61 07/12/17 14:00 61 19 175/122 (139) 95 07/12/17 13:00 60 16 182/80 (114) 07/12/17 12:00 58 07/12/17 12:00 98.0 58 19 161/72 (101) 96 07/12/17 11:01 68 19 163/70 (101) 95 07/12/17 11:00 69 19 95 07/12/17 10:02 82 21 185/81 (115) 89 07/12/17 10:01 81 32 203/101 (135) 87 07/12/17 10:00 77 26 88 07/12/17 10:00 77 07/12/17 09:00 66 18 171/74 (106) 93 07/12/17 08:31 95 Partial Rebreather 12.00 I/O 07/12/17 07/12/17 07/12/17 07/13/17 07/13/17 07/13/17 07:00 15:00 23:00 07:00 15:00 23:00 Intake Total 602.5 ml 100 ml 680 ml 150 ml Output Total 475 ml 1450 ml 825 ml Balance 127.5 ml 100 ml -770 ml -675 ml Intake Oral 240 ml 480 ml 150 ml IV Total 362.5 ml 100 ml 200 ml Output Urine Total 475 ml 1450 ml 825 ml # Bowel Movements 0 4 Result Diagram: 07/12/17 0941 07/13/17 0632 Imaging Last Impressions Chest X-Ray 07/10/17 0836 Signed Impressions: Service Date/Time: Monday, July 10, 2017 08:53 - CONCLUSION: 1. Subtle patchy to mildly nodular airspace opacity in the right upper lung zone. Suggest correlating with any prior imaging studies that could confirm longer-term stability. If none are available suggest either a followup chest x-ray to confirm resolution or followup CT. 2. Slight blunting of the left costophrenic angle may represent pleural scar or trace pleural fluid. Artie Branham MD Objective Remarks GENERAL: NAD with upper extremity restrained SKIN: Warm and dry. HEAD: Normocephalic. EYES: No scleral icterus. No injection or drainage. NECK: Supple, trachea midline. No JVD or lymphadenopathy. CARDIOVASCULAR: Regular rate and rhythm without murmurs, gallops, or rubs. RESPIRATORY: Breath sounds decreased bilaterally. No accessory muscle use. GASTROINTESTINAL: Abdomen soft, non-tender, nondistended. MUSCULOSKELETAL: No cyanosis, or edema. BACK: Nontender without obvious deformity. No CVA tenderness. Procedures none A/P Problem List: (1) Acute metabolic encephalopathy ICD Code: G93.41 - Metabolic encephalopathy (2) Respiratory failure with hypoxia ICD Code: J96.91 - Respiratory failure, unspecified with hypoxia Status: Acute (3) HCAP (healthcare-associated pneumonia) ICD Code: J18.9 - Pneumonia, unspecified organism (4) Lactic acid acidosis ICD Code: E87.2 - Acidosis (5) Hypothyroidism ICD Code: E03.9 - Hypothyroidism, unspecified (6) Diabetes mellitus, type 2 ICD Code: E11.9 - Type 2 diabetes mellitus without complications Assessment and Plan 87-year-old female with Acute respiratory failure with hypoxia-improving Healthcare associated pneumonia Chest x-ray with evidence of pulmonary infiltrate right lung ABG with evidence of hypoxia Currently on NC 3-4L Currently on vancomycin and Azactam; culture so far negative to date urinary pneumococcal and Legionella antigen as well as flu antigen all negative DuoNeb when necessary and maintain oxygen saturation above 92% Metabolic encephalopathy-resolved Multifactorial May be secondary to current pneumonia versus respiratory failure versus others Avoid all WAREHOUSER depressant medication EEG noted in review Elevated troponin I No evidence of ischemia, and ACS ruled out per protocol with serial cardiac enzyme and EKGs Lactic acidosis Secondary to above infectious process Monitor lactic acid Acute renal failure Patient baseline not known Continue gentle IV fluid hydration, however monitor for sign of volume overload Diabetes type 2 Continue insulin sliding scale and outpatient medications Hypertension Continue Lopressor 50 mg by mouth twice a day, hydralazine when necessary History of CHF Chest x-ray without any evidence of pulmonary congestion despite elevated BNP Continue Lasix Hypothyroidism Continue Synthroid TSH and free T4 noted DVT prophylaxis: Bilateral SCDs Consider hospice consultation Transfer to [facility] Discharge Planning Discharge to SNF when medically stable Problem Qualifiers (1) Respiratory failure with hypoxia: Qualified Codes: J96.01 - Acute respiratory failure with hypoxia Anurag Tolbert MD Jul 13, 2017 08:20
[2017-07-13] MEDS: RESP: ALBUTEROL 2.5 MG/IPRATROPIUM 0.5 MG NEB (SCH) NEB ×3 (08:28→20:31)
[2017-07-13] MEDS ORDERED: ENALAPRILAT 2.5 MG/2 ML VIAL IV PUSH PRN (08:30)
[2017-07-13] MEDS: LACTOBACILLUS ACIDOPHILUS TAB PO SCH ×2 (08:47→20:13)
[2017-07-13] MEDS ORDERED: cloNIDine HCL 0.1 MG/24 HR PATCH T-DERMAL ONE (15:30)
[2017-07-13] MEDS ORDERED: REMOVE OLD PATCH T-DERMAL SCH (16:00)
[2017-07-14] VITALS (14 sets, daily range): BP systolic 150–204; BP diastolic 65–93; PULSE 73–99; RESP 18–22; TEMP 97.9–98.8; O2SAT 87–97
[2017-07-14] MEDS: LEVOTHYROXINE SODIUM 100 MCG TAB PO SCH ×2 (05:05→08:14)
[2017-07-14] MEDS: INSULIN ASPART SUPPLEMENTAL SCALE SQ SCH ×5 (05:16→21:00)
[2017-07-14] MEDS: metFORMIN HCL 500 MG TAB PO SCH (08:15)
[2017-07-14] MEDS: METOPROLOL TARTRATE 50 MG TAB PO SCH ×2 (08:15→21:08)
[2017-07-14] MEDS: LACTOBACILLUS ACIDOPHILUS TAB PO SCH ×2 (08:15→21:08)
[2017-07-14] MEDS: POTASSIUM CHLORIDE 10 MEQ CAP PO SCH ×2 (08:15→21:09)
[2017-07-14] MEDS: FUROSEMIDE 40 MG TAB PO SCH (08:16)
[2017-07-14] MEDS: RESP: ALBUTEROL 2.5 MG/IPRATROPIUM 0.5 MG NEB (SCH) NEB ×3 (08:36→19:58)
[2017-07-14] MEDS: AZTREONAM INJ 2,000 MG in SODIUM CHLORIDE 0.9% INJ 100 ML IV SCH ×2 (09:00→21:09)
[2017-07-14] MEDS: SODIUM CHLORIDE 0.9% FLUSH 10 ML FLUSH IV FLUSH SCH ×2 (09:00→21:00)
[2017-07-14] MEDS ORDERED: hydrALAZINE HCL 10 MG TAB PO PRN (09:30)
[2017-07-14] MEDS ORDERED: cloNIDine HCL 0.1 MG TAB PO PRN (09:30)
--- NOTE | 2017-07-14 09:32 | HHI.PR ---
Subjective Remarks Pt is confused. Not agitated when I see her but has restraints on. Pt denies any CP, states SOB is not better. No nausea or vomiting. Not hungry. Talks to me about being w her toes. Discussed w RN, no IV access at this time and recommending a mid line to be placed. BP elevated Objective Vitals Vital Signs Date Time Temp Pulse Resp B/P (MAP) Pulse Ox O2 Delivery O2 Flow Rate FiO2 07/14/17 08:37 94 Nasal Cannula 4.00 07/14/17 06:00 99 07/14/17 04:00 87 07/14/17 04:00 98.3 87 19 166/92 (116) 94 07/14/17 02:00 83 07/14/17 00:00 97.9 74 18 166/82 (110) 95 07/14/17 00:00 74 07/13/17 22:00 70 07/13/17 20:34 96 Nasal Cannula 4.00 07/13/17 20:00 84 07/13/17 20:00 98.3 84 25 150/99 (116) 99 07/13/17 19:00 95 Nasal Cannula 4.00 07/13/17 18:00 90 07/13/17 16:00 98.4 84 22 165/76 (105) 95 07/13/17 16:00 84 07/13/17 14:00 76 07/13/17 12:00 98.8 73 18 177/85 (115) 96 07/13/17 12:00 73 07/13/17 10:00 73 I/O 07/13/17 07/13/17 07/13/17 07/14/17 07/14/17 07/14/17 07:00 15:00 23:00 07:00 15:00 23:00 Intake Total 150 ml 899 ml Output Total 825 ml 1200 ml 400 ml Balance -675 ml -301 ml -400 ml Intake Oral 150 ml 400 ml IV Total 499 ml Output Urine Total 825 ml 1200 ml 400 ml # Bowel Movements 4 1 1 Result Diagram: 07/12/17 0941 07/13/17 0632 Imaging Last Impressions Chest X-Ray 07/10/17 0836 Signed Impressions: Service Date/Time: Monday, July 10, 2017 08:53 - CONCLUSION: 1. Subtle patchy to mildly nodular airspace opacity in the right upper lung zone. Suggest correlating with any prior imaging studies that could confirm longer-term stability. If none are available suggest either a followup chest x-ray to confirm resolution or followup CT. 2. Slight blunting of the left costophrenic angle may represent pleural scar or trace pleural fluid. Artie Branham MD Objective Remarks GENERAL: upper extremity restrained SKIN: Warm and dry. HEAD: Normocephalic. EYES: EOMI. No scleral icterus. No injection or drainage. NECK: trachea midline. CARDIOVASCULAR: Regular rate and rhythm without murmurs. RESPIRATORY: Breath sounds decreased bilaterally. No accessory muscle use. GASTROINTESTINAL: Abdomen soft, non-tender, nondistended. MUSCULOSKELETAL: No edema. NEURO: confused. Only knows her name, cannot tell me , place, time Procedures none A/P Problem List: (1) Acute metabolic encephalopathy ICD Code: G93.41 - Metabolic encephalopathy (2) Respiratory failure with hypoxia ICD Code: J96.91 - Respiratory failure, unspecified with hypoxia Status: Acute (3) HCAP (healthcare-associated pneumonia) ICD Code: J18.9 - Pneumonia, unspecified organism (4) Lactic acid acidosis ICD Code: E87.2 - Acidosis (5) Hypothyroidism ICD Code: E03.9 - Hypothyroidism, unspecified (6) Diabetes mellitus, type 2 ICD Code: E11.9 - Type 2 diabetes mellitus without complications Assessment and Plan 87-year-old female with Acute respiratory failure with hypoxia-improving Healthcare associated pneumonia Initial Chest x-ray with evidence of pulmonary infiltrate right lung. Will repeat Initial ABG with evidence of hypoxia Currently on NC 3-4L Currently on vancomycin and Azactam; culture so far negative to date urinary pneumococcal and Legionella antigen as well as flu antigen all negative DuoNeb when necessary and maintain oxygen saturation above 92%. Will consult pulm as pt not improving. Metabolic encephalopathy-resolved Multifactorial May be secondary to current pneumonia versus respiratory failure/hypoxia versus others Avoid all DRUG SAFETY ASSOCIATE depressant medication EEG noted in review Elevated troponin I 0.26-->0.3-->0.40. Pt poor historian. Repeat EKG. will consult cards for recs , Pt's BPs not well controlled, this could be related to demand and hypoxia. Will titrate BP meds. Pt has no IV access. Hypertension urgency Continue Lopressor 50 mg by mouth twice a day, added po hydralazine and clonidine prn, added amlodipine 10mg po daily. Will order midline for IV access as pt has very poor veins and keeps losing her Access Lactic acidosis Secondary to above infectious process Monitor lactic acid Acute renal failure-resolved Patient baseline not known Continue gentle IV fluid hydration, however monitor for sign of volume overload Diabetes type 2 Continue insulin sliding scale and outpatient medications History of CHF Chest x-ray without any evidence of pulmonary congestion despite elevated BNP. repeat chest x-ray Continue Lasix check ECHO as I cannot find one in file. Hypothyroidism Continue Synthroid TSH and free T4 noted DVT prophylaxis: Bilateral SCDs Consider hospice consultation if worsening. Discharge Planning monitor in ICU for now. Problem Qualifiers (1) Respiratory failure with hypoxia: Qualified Codes: J96.01 - Acute respiratory failure with hypoxia Breanna Fry MD Jul 14, 2017 09:32
--- NOTE | 2017-07-14 11:50 | RADRPT ---
EXAM DATE/TIME: 07/14/2017 10:49 [facility] COMPARISON: CHEST SINGLE AP, July 10, 2017, 8:53. INDICATIONS : Short of breath. MEDICAL HISTORY : Chronic obstructive pulmonary disease. Congestive heart failure. Hypercholesterolemia. Diabetes SURGICAL HISTORY : Appendectomy. Cholecystectomy. ENCOUNTER: Initial ACUITY: 4 - 6 days PAIN SCORE: Non-responsive. LOCATION: Bilateral chest FINDINGS: The heart is mildly prominent. Bilateral scattered infiltrates are again noted and stable. Degenera tive changes and scoliosis of the thoracic spine are noted. CONCLUSION: 1. Stable scattered infiltrates bilaterally. 2. Stable cardiomegaly. 3. Mild degenerative changes and scoliosis of the thoracic spine. Lux Soto MD on July 14, 2017 at 11:22 Board Certified Radiologist. This report was verified electronically.
[2017-07-14 12:11] LABS: BLOOD GAS BASE EXCESS 7.5 mmol/L (-2-2); BLOOD GAS CARBOXYHEMOGLOBIN 1.8 % (0-4); BLOOD GAS HCO3 31 mmol/L (22-26); BLOOD GAS METHEMOGLOBIN 0.9 % (0-2); BLOOD GAS O2 HGB SATURATION 87 % (90-100); BLOOD GAS OXYGEN CONTENT 14.4 Vol % (12.0-20.0); BLOOD GAS PCO2 36 mmHg (38-42); BLOOD GAS PO2 53 mmHg (61-120); BLOOD GAS TOTAL HGB 11.8 G/DL (12.0-16.0); TEMP CORR TO 98.6
[2017-07-14 12:14] LABS: CRITICAL VALUE YES; DRAW SITE LT RADIAL; FIO2 21 %; NUMBER OF ARTERIAL PUNCTURES 1; STAT NO; ULNAR PULSE PRESENT
[2017-07-14] MEDS ORDERED: VALSARTAN 160 MG TAB PO SCH (16:00)
--- NOTE | 2017-07-14 16:52 | MB ---
cc: Jerson PANDEY DATE OF CONSULTATION 07/14/2017 HISTORY Ms. Phillips is an 87-year-old white female who was brought from a skilled nursing for persistent hypoxemia. All of this information is taken from her admission notes and the record because the patient has a chronic dementia and is providing no significant information to me today. She presented from the skilled nursing and they could not get her O2 sats up above 90 consistently and apparently she is not on continuous oxygen. There is a prior history of dementia and COPD also recorded to be diabetic with history of congestive heart failure. MEDICATIONS As an outpatient include: 1. Albuterol nebulized treatments 2. As needed Xanax 3. Clonidine 4. Escitalopram 5. Lasix 6. Gabapentin 7. Hydrocodone p.r.n. 8. Metformin 9. Metoprolol 10. Potassium On admission, the patient had a chest x-ray which reveals cardiomegaly with some minimal infiltrates in the right midlung. White blood cell count was 10,000 and cultures of her blood and urine were negative. Legionella and pneumococcal antigens in the urine were negative and influenza was negative. A nasal screen for MRSA was positive. Creatinine is normal at 0.68, although was 1.16 on presentation. Blood pressures have remained elevated in the 170-200/90-95 range. The patient is comfortable at rest even off of oxygen with O2 sats of 88-90, but she cannot recall where she is, where she lives or where her family is, although she told me she had three children. MEDICATIONS Current medications are reviewed in the EMR. She has been on Azactam and Vancomycin for possible infection. ADDITIONAL PAST MEDICAL HISTORY Apparently she has had: 1. Appendectomy 2. Cholecystectomy 3. Hysterectomy ALLERGIES SHE HAS ALLERGIES LISTED LATEX, PENICILLIN, SULFA, CODEINE, MORPHINE AND TOMATOES. SOCIAL HISTORY All that I know is that she lives in a local nursing facility. PHYSICAL EXAMINATION This is an elderly white female confused, very poor memory, afebrile, pulse is 80, respirations are 18, blood pressure currently 200/93, O2 sats 94% on four liters. HEAD, EYES, EARS, NOSE, AND THROAT: Sclerae pale, but anicteric. Mucous membranes are very dry. NECK: Neck veins are flat. CHEST: Completely clear. No congestion. No basilar rales. HEART: Regular heart rhythm. Soft systolic murmur. No audible S3. ABDOMEN: Soft, nontender. EXTREMITIES: She has no peripheral edema or calf tenderness. No cyanosis of the nail beds. DISCUSSION Ms. Phillips presents from a nursing facility with a history of COPD and dementia. She is mildly hypoxic. She had a blood gas today with a pO2 of 53 on room air. There is no hypercarbia. She has been on a couple liters of nasal oxygen with good saturations and chest x-ray suggests there may be some underlying pneumonia although it is really quite minimal radiographically. I would suggest continuing her nebulized aerosol treatments and 5-7 days of antibiotics in the event there is some pneumonia. She has been on oxygen and I would continue that. Further diagnostic and/or therapeutic range and will depend on her ongoing clinical course. R. MD JUAN Mata/RAJEEV /12:39 PM /4:38 PM
--- NOTE | 2017-07-14 17:11 | MB ---
cc: ASHKAN JOHNSON M.D. DATE OF CONSULTATION: 07/14/2017. REASON FOR CONSULTATION: Abnormal troponin level HISTORY OF PRESENT ILLNESS: The patient is an 87-year-old white female with a history of COPD, diabetes, hypertension, progressively worsening dementia who was brought to the hospital with increasing respiratory distress. Troponin levels were checked and found to be slightly abnormal. The patient denies any recent chest pain. She states her dyspnea has minimally improved. She also denies dizziness, syncope, palpitations, paroxysmal nocturnal dyspnea. Intermittently she does experience mild ankle edema. For the most part she is sedentary. PAST MEDICAL HISTORY: 1. COPD apparently with history of chronic recurrent pulmonary infections. 2. Diabetes. 3. Hypertension. 4. Dementia, which the patient's preparation supervisor canning notes has been progressively worsening over the last few months. CURRENT CARDIAC MEDICATIONS: 1. Catapres patch 0.1 milligram every seven days. 2. Amlodipine 10 milligrams p.o. daily. 3. Metoprolol tartrate 50 milligrams p.o. twice a day. 4. Furosemide 40 milligrams p.o. daily. ALLERGIES: 1. PENICILLIN. 2. SULFA. 3. CODEINE. 4. MORPHINE. FAMILY HISTORY: Noncontributory. SOCIAL HISTORY: The patient denies any history of alcohol or tobacco abuse. REVIEW OF SYSTEMS: Review of systems as in the history of present illness otherwise negative or noncontributory. She also denies headache, abdominal pain, melena, nausea. PHYSICAL EXAMINATION: VITAL SIGNS: Blood pressure 163/103 with a pulse of 100, respirations 20. GENERAL: In general, she is a well-developed, well-nourished white female in no acute distress. HEAD, EYES, EARS, NOSE, THROAT: Jugular venous pressure is hard to assess. It appears to be normal. NECK: Carotid pulses are 2+ bilaterally and without bruits. CHEST: Diminished breath sounds anteriorly. CARDIAC: On cardiac examination she has a regular rhythm and rate without S3, S4 or murmur. ABDOMEN: She has a soft, nontender abdomen. Bowel sounds are present. There is no definite hepatosplenomegaly. EXTREMITIES: No cyanosis, clubbing or edema. LABORATORY DATA: WBCs 9.9, hemoglobin 12.2, platelet count 199,000. Potassium 4.2, BUN 31, creatinine 0.78. Troponin 0.40. CK 139. INR is 0.9. IMAGING STUDIES: Chest x-ray shows stable scattered infiltrates bilaterally. EKGS: EKG shows normal sinus rhythm, nonspecific anterior T wave abnormality. IMPRESSION: Minimally elevated troponin levels in this 87-year-old white female with a history of COPD, diabetes, hypertension, progressively worsening dementia. Overall I doubt the slightly elevated troponin levels are due to acute coronary syndrome. CKs are negative for myocardial infarction. No definite acute diagnostic S-T segment or T-wave changes are seen on EKGs. Echocardiogram is pending. She does have risk factors for coronary artery disease, hypertension, diabetes, advanced age. Overall she is a very poor candidate for aggressive cardiac evaluation, given her dementia, advanced age, sedentary lifestyle. RECOMMENDATIONS: 1. Overall conservative cardiac evaluation and therapy. 2. Await her 2-D echocardiogram. 3. Try to achieve better blood pressure control. 4. Daily baby aspirin. MD JOCELINE Iniguez/JODY /1:31 PM /4:58 PM MTDCody
[2017-07-14] MEDS ORDERED: PHARMACY ORDERED LAB ONE (20:45)
[2017-07-14] MEDS: VANCOMYCIN INJ 1,250 MG in SODIUM CHLOR 0.9% 250 ML INJ 250 ML IV SCH (23:25)
[2017-07-15] VITALS (14 sets, daily range): BP systolic 130–165; BP diastolic 60–76; PULSE 54–90; RESP 18–42; TEMP 97.9–98.9; O2SAT 91–100
[2017-07-15 06:21] LABS: BICARBONATE 27.9 MEQ/L (21.0-32.0); POTASSIUM 3.4 MEQ/L (3.5-5.1)
[2017-07-15 07:31] LABS: AUTOMATED NEUTROPHIL # 8.2 TH/MM3 (1.8-7.7); BASOPHIL % 0.3 % (0.0-2.0); EOSINOPHIL # 0.2 TH/MM3 (0-0.4); EOSINOPHIL % 1.5 % (0.0-4.0); HEMO FLAGS AUTO DIFF; LYMPH % 9.5 % (9.0-44.0); MEAN CELL VOLUME 85.8 FL (80.0-100.0); MEAN CORPUSCULAR HEMOGLOBIN 28.2 PG (27.0-34.0); MEAN CORPUSCULAR HGB CONC 32.8 % (32.0-36.0); MONO % 8.6 % (0.0-8.0); NEUT % 80.1 % (16.0-70.0); PLATELET COUNT 255 TH/MM3 (150-450); RED BLOOD COUNT 4.66 MIL/MM3 (4.00-5.30); WHITE BLOOD COUNT 10.3 TH/MM3 (4.0-11.0)
[2017-07-15] MEDS: RESP: ALBUTEROL 2.5 MG/IPRATROPIUM 0.5 MG NEB (SCH) NEB ×3 (07:56→20:00)
[2017-07-15] MEDS ORDERED: POTASSIUM CHLORIDE 20 MEQ CONTROLLED RELEASE TAB PO ONE (08:00)
[2017-07-15] MEDS ORDERED: LEVOFLOXACIN 750 MG PREMIX INJ 150 ML IV SCH (08:00)
[2017-07-15] MEDS: INSULIN ASPART SUPPLEMENTAL SCALE SQ SCH ×4 (08:00→20:11)
--- NOTE | 2017-07-15 08:16 | HHI.PR ---
Subjective Remarks Pt answers w yes or no. States SOB better, no CP/N/V, no appetite. Initially says "yes" when I ask her if she knows where she is but then cannot tell me Discussed w RN Objective Vitals Vital Signs Date Time Temp Pulse Resp B/P (MAP) Pulse Ox O2 Delivery O2 Flow Rate FiO2 07/15/17 07:57 97 Nasal Cannula 4.00 07/15/17 06:00 59 07/15/17 04:00 98.9 60 18 155/76 (102) 97 07/15/17 04:00 60 07/15/17 02:00 66 07/15/17 00:00 75 07/15/17 00:00 98.1 90 25 165/76 (105) 91 07/14/17 22:00 88 07/14/17 20:00 97.9 80 19 160/66 (97) 87 07/14/17 20:00 80 07/14/17 19:59 94 Nasal Cannula 4.00 07/14/17 19:00 95 Nasal Cannula 4.00 07/14/17 18:00 93 07/14/17 16:00 99 07/14/17 16:00 98.3 99 22 150/65 (93) 87 07/14/17 14:00 80 07/14/17 12:00 98.6 98 20 167/75 (105) 97 07/14/17 12:00 96 07/14/17 10:00 73 07/14/17 08:37 94 Nasal Cannula 4.00 I/O 07/14/17 07/14/17 07/14/17 07/15/17 07/15/17 07/15/17 07:00 15:00 23:00 07:00 15:00 23:00 Intake Total 650 ml 490 ml Output Total 400 ml 640 ml 350 ml Balance -400 ml 10 ml 140 ml Intake Oral 650 ml 240 ml IV Total 250 ml Output Urine Total 400 ml 640 ml 350 ml # Bowel Movements 1 1 1 Result Diagram: 07/15/1752207/15/17522 Imaging Last Impressions Chest X-Ray 07/14/17 0000 Signed Impressions: Service Date/Time: Friday, July 14, 2017 10:49 - CONCLUSION: 1. Stable scattered infiltrates bilaterally. 2. Stable cardiomegaly. 3. Mild degenerative changes and scoliosis of the thoracic spine. Lux Soto MD Objective Remarks GENERAL: upper extremity restrained SKIN: Warm and dry. HEAD: Normocephalic. EYES: EOMI. No scleral icterus. No injection or drainage. NECK: trachea midline. CARDIOVASCULAR: Regular rate and rhythm without murmurs. RESPIRATORY: Breath sounds decreased bilaterally. No accessory muscle use. GASTROINTESTINAL: Abdomen soft, non-tender, nondistended. MUSCULOSKELETAL: No edema. NEURO: still confused. Only knows her name, cannot tell me , place, time Procedures none A/P Problem List: (1) Acute metabolic encephalopathy ICD Code: G93.41 - Metabolic encephalopathy (2) Respiratory failure with hypoxia ICD Code: J96.91 - Respiratory failure, unspecified with hypoxia Status: Acute (3) HCAP (healthcare-associated pneumonia) ICD Code: J18.9 - Pneumonia, unspecified organism (4) Lactic acid acidosis ICD Code: E87.2 - Acidosis (5) Hypothyroidism ICD Code: E03.9 - Hypothyroidism, unspecified (6) Diabetes mellitus, type 2 ICD Code: E11.9 - Type 2 diabetes mellitus without complications Assessment and Plan 87-year-old female with Acute respiratory failure with hypoxia-improving Healthcare associated pneumonia Initial Chest x-ray with evidence of pulmonary infiltrate right lung. Repeat X-ray stable. Initial ABG with evidence of hypoxia Currently on NC 3-4L Currently on vancomycin and Azactam; cultures so far negative to date. Will d /c vanco and switch to po levaquin to minimize use of IVs as pt has poor IV access. Continue azactam for now. urinary pneumococcal and Legionella antigen as well as flu antigen all negative DuoNeb when necessary and maintain oxygen saturation above 92%. pulm following and appreciate recs Metabolic encephalopathy-resolved Multifactorial May be secondary to current pneumonia versus respiratory failure/hypoxia versus others Avoid all MANAGER SAFE depressant medication EEG noted in review Elevated troponin I 0.26-->0.3-->0.40. Pt poor historian. Cards following, appreciate recs. Pt' s BPs not well controlled, added low dose HCTZ in addition to other BP meds. . Hypertension urgency Continue Lopressor 50 mg by mouth twice a day, po hydralazine and clonidine prn, amlodipine 10mg po daily and now added HCTZ 12.5mg po daily. Lactic acidosis Secondary to above infectious process Monitor lactic acid Acute renal failure-resolved Patient baseline not known Continue gentle IV fluid hydration, however monitor for sign of volume overload Diabetes type 2 Continue insulin sliding scale and outpatient medications History of CHF Chest x-ray without any evidence of pulmonary congestion despite elevated BNP. Continue Lasix ECHO report not available. Hypothyroidism Continue Synthroid TSH and free T4 noted DVT prophylaxis: Bilateral SCDs Consider hospice consultation if worsening. Discharge Planning monitor in ICU for now. Discussed w RN regarding po intake, she will try to feed her and see if she is eating. Will try to d/c restraints worst case use mittens to avoid loosing IV access. Monitor one more day in ICU and transition to floor in AM. Problem Qualifiers (1) Respiratory failure with hypoxia: Qualified Codes: J96.01 - Acute respiratory failure with hypoxia Breanna Fry MD Jul 15, 2017 08:16
--- NOTE | 2017-07-15 08:20 | PD.CARD.PN ---
Subjective Subjective Remarks Denies CP, abdominal pain, dyspnea, dizziness, palpitations. Objective Medications Item Value Date Time Clonidine 1 patch 07/20/17 1600 (Catapres-Tts Q7D/T-DERMAL 0.2 Mg Patch.7d) Hydrochlorothiazide 12.5 mg 07/15/17 0900 (Hydrodiuril) DAILY/PO Metoprolol 100 mg 07/14/17 2100 Tartrate BID/PO 07/14/17 2108 (Lopressor) Valsartan 160 mg 07/14/17 1600 (Diovan) DAILY/PO 07/14/17 1757 Amlodipine 10 mg 07/14/17 0930 Besylate DAILY/PO 07/14/17 0950 (Norvasc) Furosemide 40 mg 07/11/17 0900 (Lasix) DAILY/PO 07/14/17 0816 Vital Signs / I&O Vital Signs Date Time Temp Pulse Resp B/P (MAP) Pulse Ox O2 Delivery O2 Flow Rate FiO2 07/15/17 07:57 97 Nasal Cannula 4.00 07/15/17 06:00 59 07/15/17 04:00 98.9 60 18 155/76 (102) 97 07/15/17 04:00 60 07/15/17 02:00 66 07/15/17 00:00 75 07/15/17 00:00 98.1 90 25 165/76 (105) 91 07/14/17 22:00 88 07/14/17 20:00 97.9 80 19 160/66 (97) 87 07/14/17 20:00 80 07/14/17 19:59 94 Nasal Cannula 4.00 07/14/17 19:00 95 Nasal Cannula 4.00 07/14/17 18:00 93 07/14/17 16:00 99 07/14/17 16:00 98.3 99 22 150/65 (93) 87 07/14/17 14:00 80 07/14/17 12:00 98.6 98 20 167/75 (105) 97 07/14/17 12:00 96 07/14/17 10:00 73 07/14/17 08:37 94 Nasal Cannula 4.00 I/O 07/14/17 07/14/17 07/14/17 07/15/17 07/15/17 07/15/17 07:00 15:00 23:00 07:00 15:00 23:00 Intake Total 650 ml 490 ml Output Total 400 ml 640 ml 350 ml Balance -400 ml 10 ml 140 ml Intake Oral 650 ml 240 ml IV Total 250 ml Output Urine Total 400 ml 640 ml 350 ml # Bowel Movements 1 1 1 Physical Exam GENERAL: Well developed, well nourished. No acute distress. HEENT: Jugular venous pressure is normal. CHEST: Lungs clear to auscultation anteriorly. CARDIAC: Regular rate and rhythm without S3, S4, or murmur. ABDOMEN: Soft, nontender, no hepatosplenomegaly. Bowel sounds present. EXTREMITIES: No clubbing, cyanosis, or edema. Laboratory Laboratory Tests Test 07/14/17 12:06 07/14/17 22:21 07/15/17 05:23 Blood Gas Puncture Site LT RADIAL Blood Gas Patient Temperature 98.6 Blood Gas HCO3 31 mmol/L Blood Gas Base Excess 7.5 mmol/L Blood Gas Oxygen Saturation 87 % Arterial Blood pH 7.54 Arterial Blood Partial Pressure CO2 36 mmHg Arterial Blood Partial Pressure O2 53 mmHg Arterial Blood Oxygen Content 14.4 Vol % Arterial Blood Carboxyhemoglobin 1.8 % Arterial Blood Methemoglobin 0.9 % Blood Gas Hemoglobin 11.8 G/DL Blood Gas Inspired Oxygen 21 % Vancomycin Level Trough 7.5 MCG/ML White Blood Count 10.3 TH/MM3 Red Blood Count 4.66 MIL/MM3 Hemoglobin 13.1 GM/DL Hematocrit 40.0 % Mean Corpuscular Volume 85.8 FL Mean Corpuscular Hemoglobin 28.2 PG Mean Corpuscular Hemoglobin Concent 32.8 % Red Cell Distribution Width 17.0 % Platelet Count 255 TH/MM3 Mean Platelet Volume 9.2 FL Neutrophils (%) (Auto) 80.1 % Lymphocytes (%) (Auto) 9.5 % Monocytes (%) (Auto) 8.6 % Eosinophils (%) (Auto) 1.5 % Basophils (%) (Auto) 0.3 % Neutrophils # (Auto) 8.2 TH/MM3 Lymphocytes # (Auto) 1.0 TH/MM3 Monocytes # (Auto) 0.9 TH/MM3 Eosinophils # (Auto) 0.2 TH/MM3 Basophils # (Auto) 0.0 TH/MM3 CBC Comment AUTO DIFF Hematology Comments Blood Urea Nitrogen 15 MG/DL Creatinine 0.62 MG/DL Random Glucose 145 MG/DL Calcium Level 9.0 MG/DL Sodium Level 139 MEQ/L Potassium Level 3.4 MEQ/L Chloride Level 103 MEQ/L Carbon Dioxide Level 27.9 MEQ/L Anion Gap 8 MEQ/L Estimat Glomerular Filtration Rate 91 ML/MIN Assessment and Plan Problem List: (1) Elevated troponin ICD Codes: R74.8 - Abnormal levels of other serum enzymes Status: Acute Plan: Stable overnight. Echo pending. Overall doubt slight troponin elevations due to underlying severe CAD, though certainly possible. Rec conservative therapy. Continue calcium channel and beta blockers. Rec aspirin. (2) Hypertension ICD Codes: I10 - Essential (primary) hypertension Status: Chronic Plan: Still mild to moderately hypertensive though BP's better overall on multidrug regimen. Rec adjust antihypertensive regimen as needed. Code Status No Code Discussed Condition With Patient Problem Qualifiers (1) Hypertension: Qualified Codes: I10 - Essential (primary) hypertension Dalton Roldan MD Jul 15, 2017 08:20
[2017-07-15] MEDS: FUROSEMIDE 40 MG TAB PO SCH (08:34)
[2017-07-15] MEDS: METOPROLOL TARTRATE 50 MG TAB PO SCH ×2 (08:34→20:11)
[2017-07-15] MEDS: POTASSIUM CHLORIDE 10 MEQ CAP PO SCH ×2 (08:34→20:11)
[2017-07-15] MEDS: SODIUM CHLORIDE 0.9% FLUSH 10 ML FLUSH IV FLUSH SCH ×2 (08:35→20:10)
[2017-07-15] MEDS: AZTREONAM INJ 2,000 MG in SODIUM CHLORIDE 0.9% INJ 100 ML IV SCH ×2 (08:35→20:10)
[2017-07-15] MEDS: metFORMIN HCL 500 MG TAB PO SCH (08:35)
[2017-07-15] MEDS ORDERED: HYDROCHLOROTHIAZIDE 25 MG TAB PO SCH (09:00)
[2017-07-15 10:26] LABS: BANDS 5 % (0-6); EOSINOPHILS 1 % (0-4); METAMYELOCYTES 2 % (0-1); MYELOCYTES 1 % (0-0); NEUTROPHIL # MANUAL DIFF 7.6 TH/MM3 (1.8-7.7); POLYS (SEG NEUTROPHILS) 66 % (16-70); WBC DIFF SAMPLE 100
[2017-07-15 10:29] LABS: PLATELET MORPHOLOGY ENLARGED (NORMAL)
[2017-07-15 10:31] LABS: TEARDROP RBCS 1+ (NORMAL)
[2017-07-15 10:34] LABS: PLATELET ESTIMATE SMEAR NORMAL (NORMAL); SCAN/DIFF FINAL DIFF MANUAL
[2017-07-15] MEDS: HYDROCHLOROTHIAZIDE 12.5 MG CAP PO SCH (11:03)
[2017-07-15] MEDS: LEVOFLOXACIN 750 MG TAB PO SCH (11:03)
[2017-07-15] MEDS: ASPIRIN EC 81 MG TABEC PO SCH (11:03)
[2017-07-15] MEDS: VALSARTAN 160 MG TAB PO SCH (11:04)
[2017-07-15] MEDS: LACTOBACILLUS ACIDOPHILUS TAB PO SCH ×2 (11:04→20:11)
[2017-07-15] MEDS: LORazepam 2 MG/ML VIAL IV PUSH PRN ×2 (12:17→21:12)
[2017-07-16] VITALS (12 sets, daily range): BP systolic 117–151; BP diastolic 56–67; PULSE 53–76; RESP 20–25; TEMP 97.3–98.6; O2SAT 93–96
[2017-07-16] MEDS: LEVOTHYROXINE SODIUM 100 MCG TAB PO SCH (06:22)
--- NOTE | 2017-07-16 06:37 | PD.CARD.PN ---
Subjective Subjective Remarks Somnolent. Denies pain, dyspnea. Objective Medications Item Value Date Time Clonidine 1 patch 07/20/17 1600 (Catapres-Tts Q7D/T-DERMAL 0.2 Mg Patch.7d) Hydrochlorothiazide 12.5 mg 07/15/17 0900 (Microzide) DAILY/PO 07/15/17 1103 Valsartan 320 mg 07/15/17 0900 (Diovan) DAILY/PO 07/15/17 1104 Aspirin 81 mg 07/15/17 0900 (Ecotrin Ec) DAILY/PO 07/15/17 1103 Metoprolol 100 mg 07/14/17 2100 Tartrate BID/PO 07/15/172010 (Lopressor) Amlodipine 10 mg 07/14/17 0930 Besylate DAILY/PO 07/15/17 0834 (Norvasc) Furosemide 40 mg 07/11/17 0900 (Lasix) DAILY/PO 07/15/17 0834 Vital Signs / I&O Vital Signs Date Time Temp Pulse Resp B/P (MAP) Pulse Ox O2 Delivery O2 Flow Rate FiO2 07/16/17 06:00 57 07/16/17 04:00 98.2 53 20 133/65 (87) 94 07/16/17 04:00 56 07/16/17 02:00 59 07/16/17 00:00 54 07/16/17 00:00 98.4 54 20 151/67 (95) 93 07/15/17 22:07 96 Nasal Cannula 3.00 07/15/17 22:00 59 07/15/17 20:00 98.1 65 21 134/60 (84) 95 07/15/17 20:00 65 07/15/17 19:00 97 Nasal Cannula 4.00 07/15/17 18:00 67 07/15/17 16:00 98.5 67 24 130/60 (83) 92 07/15/17 16:00 67 07/15/17 14:00 59 07/15/17 12:00 97.9 57 42 164/69 (100) 93 07/15/17 12:00 57 07/15/17 10:00 54 07/15/17 08:00 98.0 55 18 146/65 (92) 100 07/15/17 08:00 55 07/15/17 07:57 97 Nasal Cannula 4.00 07/15/17 07:00 94 Nasal Cannula 4.00 I/O 07/15/17 07/15/17 07/15/17 07/16/17 07/16/17 07/16/17 07:00 15:00 23:00 07:00 15:00 23:00 Intake Total 490 ml 100 ml 540 ml 240 ml Output Total 350 ml 800 ml 300 ml Balance 140 ml 100 ml -260 ml -60 ml Intake Oral 240 ml 440 ml 240 ml IV Total 250 ml 100 ml 100 ml Output Urine Total 350 ml 800 ml 300 ml # Bowel Movements 1 2 0 Physical Exam GENERAL: Well developed, well nourished. No acute distress. HEENT: Jugular venous pressure is normal. CHEST: Lungs clear to auscultation anteriorly. CARDIAC: Regular rate and rhythm without S3, S4, or murmur. ABDOMEN: Soft, nontender, no hepatosplenomegaly. Bowel sounds present. EXTREMITIES: No clubbing, cyanosis, or edema. Laboratory Laboratory Tests Assessment and Plan Problem List: (1) Elevated troponin ICD Codes: R74.8 - Abnormal levels of other serum enzymes Status: Acute Plan: Stable overnight. Echo still pending. Overall doubt slight troponin elevations due to underlying severe CAD, though certainly possible. Rec conservative therapy. Continue calcium channel and beta blockers, aspirin. Will f/u as needed the rest of her hospital stay. (2) Hypertension ICD Codes: I10 - Essential (primary) hypertension Status: Chronic Plan: Mostly normotensive on multidrug regimen. Rec adjust antihypertensive regimen as needed. Code Status No Code Discussed Condition With patient Problem Qualifiers (1) Hypertension: Qualified Codes: I10 - Essential (primary) hypertension Dalton Roldan MD Jul 16, 2017 06:37
[2017-07-16 07:02] LABS: BICARBONATE 31.5 MEQ/L (21.0-32.0); MAGNESIUM 1.9 MG/DL (1.5-2.5); POTASSIUM 3.4 MEQ/L (3.5-5.1)
[2017-07-16] MEDS: INSULIN ASPART SUPPLEMENTAL SCALE SQ SCH ×4 (08:00→21:00)
[2017-07-16] MEDS: RESP: ALBUTEROL 2.5 MG/IPRATROPIUM 0.5 MG NEB (SCH) NEB ×3 (08:58→21:22)
[2017-07-16] MEDS: METOPROLOL TARTRATE 50 MG TAB PO SCH ×2 (09:00→21:00)
[2017-07-16] MEDS: HYDROCHLOROTHIAZIDE 12.5 MG CAP PO SCH (09:03)
[2017-07-16] MEDS: FUROSEMIDE 40 MG TAB PO SCH (09:04)
[2017-07-16] MEDS: POTASSIUM CHLORIDE 10 MEQ CAP PO SCH ×2 (09:04→21:00)
[2017-07-16] MEDS: LACTOBACILLUS ACIDOPHILUS TAB PO SCH ×2 (09:04→21:00)
[2017-07-16] MEDS: metFORMIN HCL 500 MG TAB PO SCH (09:04)
[2017-07-16] MEDS: LEVOFLOXACIN 750 MG TAB PO SCH (09:04)
[2017-07-16] MEDS: VALSARTAN 160 MG TAB PO SCH (09:06)
[2017-07-16] MEDS: SODIUM CHLORIDE 0.9% FLUSH 10 ML FLUSH IV FLUSH SCH (09:06)
[2017-07-16] MEDS: AZTREONAM INJ 2,000 MG in SODIUM CHLORIDE 0.9% INJ 100 ML IV SCH (09:07)
[2017-07-16] MEDS: ASPIRIN EC 81 MG TABEC PO SCH (09:11)
--- NOTE | 2017-07-16 09:45 | HHI.PR ---
Subjective Remarks getting echo now. pt sleeping. when I ask her if she is having any pain she shakes her head no but keeps eyes closed. Pt did get ativan overnight per RN, off restraints. no other concerns at this time other than low potassium. Pt sat on chair last night, Objective Vitals Vital Signs Date Time Temp Pulse Resp B/P (MAP) Pulse Ox O2 Delivery O2 Flow Rate FiO2 07/16/17 08:58 94 Nasal Cannula 5.00 07/16/17 06:00 57 07/16/17 04:00 98.2 53 20 133/65 (87) 94 07/16/17 04:00 56 07/16/17 02:00 59 07/16/17 00:00 54 07/16/17 00:00 98.4 54 20 151/67 (95) 93 07/15/17 22:07 96 Nasal Cannula 3.00 07/15/17 22:00 59 07/15/17 20:00 98.1 65 21 134/60 (84) 95 07/15/17 20:00 65 07/15/17 19:00 97 Nasal Cannula 4.00 07/15/17 18:00 67 07/15/17 16:00 98.5 67 24 130/60 (83) 92 07/15/17 16:00 67 07/15/17 14:00 59 07/15/17 12:00 97.9 57 42 164/69 (100) 93 07/15/17 12:00 57 07/15/17 10:00 54 I/O 07/15/17 07/15/17 07/15/17 07/16/17 07/16/17 07/16/17 07:00 15:00 23:00 07:00 15:00 23:00 Intake Total 490 ml 100 ml 540 ml 240 ml Output Total 350 ml 800 ml 300 ml Balance 140 ml 100 ml -260 ml -60 ml Intake Oral 240 ml 440 ml 240 ml IV Total 250 ml 100 ml 100 ml Output Urine Total 350 ml 800 ml 300 ml # Bowel Movements 1 2 0 Result Diagram: 07/15/17 0523 07/16/17 0601 Imaging Last Impressions Chest X-Ray 07/14/17 0000 Signed Impressions: Service Date/Time: Friday, July 14, 2017 10:49 - CONCLUSION: 1. Stable scattered infiltrates bilaterally. 2. Stable cardiomegaly. 3. Mild degenerative changes and scoliosis of the thoracic spine. Lux Soto MD Objective Remarks GENERAL: off restraints, getting ECHO, asleep somewhat arousable and able to shake her head but falls back to sleep SKIN: Warm and dry. HEAD: Normocephalic. EYES: EOMI. No scleral icterus. No injection or drainage. NECK: trachea midline. CARDIOVASCULAR: Regular rate and rhythm without murmurs. RESPIRATORY: Breath sounds decreased bilaterally. No accessory muscle use. GASTROINTESTINAL: Abdomen soft, non-tender, nondistended. MUSCULOSKELETAL: No edema. NEURO: still confused. Only knows her name, cannot tell me , place, time Procedures none A/P Problem List: (1) Acute metabolic encephalopathy ICD Code: G93.41 - Metabolic encephalopathy (2) Respiratory failure with hypoxia ICD Code: J96.91 - Respiratory failure, unspecified with hypoxia Status: Acute (3) HCAP (healthcare-associated pneumonia) ICD Code: J18.9 - Pneumonia, unspecified organism (4) Lactic acid acidosis ICD Code: E87.2 - Acidosis (5) Hypothyroidism ICD Code: E03.9 - Hypothyroidism, unspecified (6) Diabetes mellitus, type 2 ICD Code: E11.9 - Type 2 diabetes mellitus without complications Assessment and Plan 87-year-old female with Acute respiratory failure with hypoxia-improving Healthcare associated pneumonia Initial Chest x-ray with evidence of pulmonary infiltrate right lung. Repeat X-ray stable. Initial ABG with evidence of hypoxia Currently on NC 3-4L Currently on vancomycin and Azactam; cultures so far negative to date. Will d /c vanco and switch to po levaquin to minimize use of IVs as pt has poor IV access. Continue azactam for now. urinary pneumococcal and Legionella antigen as well as flu antigen all negative DuoNeb when necessary and maintain oxygen saturation above 92%. pulm following and appreciate recs Metabolic encephalopathy-resolved Multifactorial May be secondary to current pneumonia versus respiratory failure/hypoxia versus others Avoid all [employer] depressant medication. d/c ativan EEG noted in review Elevated troponin I 0.26-->0.3-->0.40. Pt poor historian. Cards following, appreciate recs. Pt' s BPs much better controlled w HCTZ in addition to other BP meds. . Hypertension urgency Continue Lopressor 50 mg by mouth twice a day, po hydralazine and clonidine prn, amlodipine 10mg po daily and HCTZ 12.5mg po daily. Lactic acidosis Secondary to above infectious process Monitor lactic acid Acute renal failure-resolved Patient baseline not known Continue gentle IV fluid hydration, however monitor for sign of volume overload Diabetes type 2 Continue insulin sliding scale and outpatient medications History of CHF Chest x-ray without any evidence of pulmonary congestion despite elevated BNP. Continue Lasix ECHO report not available. Hypothyroidism Continue Synthroid TSH and free T4 noted DVT prophylaxis: Bilateral SCDs Consider hospice consultation if worsening. Discharge Planning monitor in ICU for now. Discussed w RN pt somewhat lethargic and less alert however she did receive ativan which could be the culprit. continue to monitor closely Problem Qualifiers (1) Respiratory failure with hypoxia: Qualified Codes: J96.01 - Acute respiratory failure with hypoxia Breanna Fry MD Jul 16, 2017 09:45
[2017-07-16] MEDS ORDERED: POTASSIUM CHLORIDE 20 MEQ CONTROLLED RELEASE TAB PO ONE (10:00)
[2017-07-16] MEDS: POTASSIUM CHLOR 20 MEQ PREMIX 100 ML IV SCH ×2 (11:46→13:49)
--- NOTE | 2017-07-16 15:51 | ECHRPT ---
Indication: HEART FAILURE CONCLUSIONS The left ventricular systolic function is hyperdynamic with an estimated ejection fraction in the ra nge of 65- 70%. Doppler parameters are consistent with impaired left ventricular relaxtion (grade 1 diastolic dysfun ction). There is color flow noted across the septum, appearing to be right to left in nature, most likely a patent foramen ovale. Trace mitral valve regurgitation. There is trace tricuspid valve regurgitation. BP: 166 / 92 HR: 87 Rhythm: Sinus MEASUREMENTS (Male / Female) Normal Values Technical Quality:Fair 2D ECHO LV Diastolic Diameter PLAX 5.0 cm 4.2 - 5.9 / 3.9 - 5.3 cm LV Systolic Diameter PLAX 3.4 cm IVS Diastolic Thickness 0.7 cm 0.6 - 1.0 / 0.6 - 0.9 cm LVPW Diastolic Thickness 0.7 cm 0.6 - 1.0 / 0.6 - 0.9 cm LV Relative Wall Thickness 0.3 LVOT Diameter 2.2 cm Aortic Root Diameter 3.1 cm LA Systolic Diameter LX 2.7 cm 3.0 - 4.0 / 2.7 - 3.8 cm M-MODE AV Cusp Separation MM 2.1 cm DOPPLER AV Peak Velocity 154.0 cm/s AV Peak Gradient 9.5 mmHg AV Mean Gradient 5.0 mmHg AV Velocity Time Integral 29.0 cm LVOT Peak Velocity 112.0 cm/s LVOT Peak Gradient 5.0 mmHg LVOT Velocity Time Integral 24.0 cm LVOT Cardiac Index 4509.8 cm/minm AV Area Cont Eq vti 3.1 cm AV Area Cont Eq pk 2.8 cm Mitral E Point Velocity 64.7 cm/s Mitral A Point Velocity 113.0 cm/s Mitral E to A Ratio 0.6 LV E' Lateral Velocity 2.6 cm/s Mitral E to LV E' Lateral Ratio 24.6 LV E' Septal Velocity 3.2 cm/s Mitral E to LV E' Septal Ratio 20.1 TR Peak Velocity 258.0 cm/s TR Peak Gradient 26.6 mmHg PV Peak Velocity 89.5 cm/s PV Peak Gradient 3.2 mmHg FINDINGS LEFT VENTRICLE Normal left ventricular size. Wall thickness is normal. The left ventricular systolic function is hyperdynamic with an estimated ejection fraction in the ra nge of 65- 70%. Doppler parameters are consistent with impaired left ventricular relaxtion (grade 1 diastolic dysfun ction). RIGHT VENTRICLE Normal right ventricular size and systolic function. LEFT ATRIUM The left atrial size is normal. RIGHT ATRIUM The right atrial size is normal. ATRIAL SEPTUM Thickened atrial septum is noted with morphological features most consistent with a lipomatous atria l septum. There is color flow noted across the septum, appearing to be right to left in nature, most likely a patent foramen ovale AORTA The aortic root and proximal ascending aorta are normal in size on limited imaging. MITRAL VALVE Structurally normal mitral valve. Trace mitral valve regurgitation. No mitral valve stenosis. AORTIC VALVE Trileaflet aortic valve. No aortic valve stenosis or regurgitation. TRICUSPID VALVE Structurally normal tricuspid valve. Normal estimated pulmonary pressures. There is trace tricuspid valve regurgitation. PULMONARY VALVE No pulmonary valve regurgitation or stenosis. VESSELS The inferior vena cava (IVC) is normal in size. There is greater than 50% respiratory change in dimension of the inferior vena cava (normal). PERICARDIUM No pericardial effusion. Damian Hernandez DO (Electronically Signed) Final Date:16 July 2017 15:50
[2017-07-16] MEDS ORDERED: LORazepam 2 MG/ML VIAL IV PUSH ONE (22:15)
[2017-07-17] VITALS (8 sets, daily range): BP systolic 118–163; BP diastolic 56–68; PULSE 74–84; RESP 17–20; TEMP 97.2–97.8; O2SAT 91–97
[2017-07-17] MEDS: AZTREONAM INJ 2,000 MG in SODIUM CHLORIDE 0.9% INJ 100 ML IV SCH ×3 (01:37→21:22)
[2017-07-17] MEDS: SODIUM CHLORIDE 0.9% FLUSH 10 ML FLUSH IV FLUSH SCH ×3 (01:37→21:22)
[2017-07-17] MEDS ORDERED: RESP: ALBUTEROL 2.5 MG/IPRATROPIUM 0.5 MG NEB (PRN) NEB (02:30)
[2017-07-17] MEDS: LEVOTHYROXINE SODIUM 100 MCG TAB PO SCH (05:19)
[2017-07-17] MEDS: INSULIN ASPART SUPPLEMENTAL SCALE SQ SCH ×4 (08:00→21:00)
[2017-07-17] MEDS: ASPIRIN EC 81 MG TABEC PO SCH (08:03)
[2017-07-17] MEDS: metFORMIN HCL 500 MG TAB PO SCH (08:03)
[2017-07-17] MEDS: VALSARTAN 160 MG TAB PO SCH (08:03)
[2017-07-17] MEDS: LEVOFLOXACIN 750 MG TAB PO SCH (08:04)
[2017-07-17] MEDS: HYDROCHLOROTHIAZIDE 12.5 MG CAP PO SCH (08:04)
[2017-07-17] MEDS: POTASSIUM CHLORIDE 10 MEQ CAP PO SCH ×2 (08:04→21:21)
[2017-07-17] MEDS: FUROSEMIDE 40 MG TAB PO SCH (08:04)
[2017-07-17] MEDS: METOPROLOL TARTRATE 50 MG TAB PO SCH ×2 (08:04→21:21)
[2017-07-17] MEDS: LACTOBACILLUS ACIDOPHILUS TAB PO SCH ×2 (08:04→21:21)
[2017-07-17] MEDS: RESP: ALBUTEROL 2.5 MG/IPRATROPIUM 0.5 MG NEB (SCH) NEB ×3 (08:45→20:20)
[2017-07-17 10:51] LABS: BICARBONATE 28.9 MEQ/L (21.0-32.0); MAGNESIUM 1.8 MG/DL (1.5-2.5); POTASSIUM 3.4 MEQ/L (3.5-5.1)
--- NOTE | 2017-07-17 14:44 | HHI.PR ---
Subjective Remarks Much more alert and awake today. Carries a whole conversation today for the first time since I have met her. Pt tells me that her "bottom is very raw". She would like to get out of bed to a chair. She is hungry but when I read her the menu she would like to try to cottage cheese, pureed pairs and thickened orange juice. No CP, still coughing, SOB improved, no nausea or vomiting. Objective Vitals Vital Signs Date Time Temp Pulse Resp B/P (MAP) Pulse Ox O2 Delivery O2 Flow Rate FiO2 07/17/17 08:49 94 Nasal Cannula 4.00 07/17/17 08:15 Nasal Cannula 4.00 07/17/17 08:00 97.2 77 20 118/58 (78) 91 07/17/17 04:00 97.4 74 20 141/67 (91) 92 07/17/17 00:00 97.7 80 20 133/56 (81) 93 07/16/17 21:23 96 Nasal Cannula 4.00 07/16/17 20:00 57 07/16/17 20:00 97.3 76 22 123/58 (79) 94 07/16/17 19:00 93 Nasal Cannula 5.00 07/16/17 16:00 70 07/16/17 16:00 98.4 70 25 139/65 (89) 94 I/O 07/16/17 07/16/17 07/16/17 07/17/17 07/17/17 07/17/17 07:00 15:00 23:00 07:00 15:00 23:00 Intake Total 240 ml 100 ml 100 ml Output Total 300 ml 575 ml 950 ml Balance -60 ml 100 ml -475 ml -950 ml Intake Oral 240 ml IV Total 100 ml 100 ml Output Urine Total 300 ml 575 ml 950 ml # Bowel Movements 0 1 2 Result Diagram: 07/15/17 0523 07/17/17 0843 Imaging Last Impressions Chest X-Ray 07/14/17 0000 Signed Impressions: Service Date/Time: Friday, July 14, 2017 10:49 - CONCLUSION: 1. Stable scattered infiltrates bilaterally. 2. Stable cardiomegaly. 3. Mild degenerative changes and scoliosis of the thoracic spine. Lux Soto MD Objective Remarks GENERAL: off restraints, alert and awake! SKIN: rash noted on buttocks but no opened sores or excoriation. HEAD: Normocephalic. EYES: EOMI. No scleral icterus. No injection or drainage. NECK: trachea midline. CARDIOVASCULAR: Regular rate and rhythm without murmurs. RESPIRATORY: Breath sounds decreased bilaterally. no wheezing or crackles. GASTROINTESTINAL: Abdomen soft, non-tender, nondistended. MUSCULOSKELETAL: No edema. NEURO: she is oriented to person time and place now. follows commands and turns when I ask her to. Procedures none A/P Problem List: (1) Acute metabolic encephalopathy ICD Code: G93.41 - Metabolic encephalopathy (2) Respiratory failure with hypoxia ICD Code: J96.91 - Respiratory failure, unspecified with hypoxia Status: Acute (3) HCAP (healthcare-associated pneumonia) ICD Code: J18.9 - Pneumonia, unspecified organism (4) Lactic acid acidosis ICD Code: E87.2 - Acidosis (5) Hypothyroidism ICD Code: E03.9 - Hypothyroidism, unspecified (6) Diabetes mellitus, type 2 ICD Code: E11.9 - Type 2 diabetes mellitus without complications Assessment and Plan 87-year-old female with Acute respiratory failure with hypoxia-improving Healthcare associated pneumonia Initial Chest x-ray with evidence of pulmonary infiltrate right lung. Repeat X-ray stable. Initial ABG with evidence of hypoxia Currently on NC 3-4L s/p vancomycin and Azactam; cultures so far negative to date. now on po levaquin to minimize use of IVs as pt has poor IV access and continue azactam for now. Treat for one more day then d/c abx. Pt did miss one full day of abx due to poor venous access secondary to agitation. urinary pneumococcal and Legionella antigen as well as flu antigen all negative continue scheduled DuoNeb, try to wean oxygen, maintain oxygen saturation above 92%. pulm following and appreciate recs Metabolic encephalopathy-resolved most likely secondary to pneumonia versus respiratory failure/hypoxia versus others Avoid all [employer] depressant medication. off ativan, keep off restraints as much as possible. EEG noted in review Elevated troponin I 0.26-->0.3-->0.40. Pt poor historian. Cards following, appreciate recs. Pt' s BPs much better controlled w HCTZ in addition to other BP meds. . Hypertension urgency Continue Lopressor 50 mg by mouth twice a day, po hydralazine and clonidine prn, amlodipine 10mg po daily and HCTZ 12.5mg po daily. Lactic acidosis Secondary to above infectious process Monitor lactic acid Acute renal failure-resolved Patient baseline not known Continue gentle IV fluid hydration, however monitor for sign of volume overload Diabetes type 2 Continue insulin sliding scale and outpatient medications History of CHF Chest x-ray without any evidence of pulmonary congestion despite elevated BNP. Continue Lasix ECHO shows EF 65-70% w grade one diastolic dysfunction Hypothyroidism Continue Synthroid TSH and free T4 noted DVT prophylaxis: Bilateral SCDs Discharge Planning Pt is much better today, she is alert and oriented. Will try to keep off restraints, wean down oxygen, get aggressive PT and consider discharging her to SNF in the next 1-2 days. She should be completing abx tomorrow. add zinc oxide to skin (buttock) Problem Qualifiers (1) Respiratory failure with hypoxia: Qualified Codes: J96.01 - Acute respiratory failure with hypoxia Breanna Fry MD Jul 17, 2017 14:44
[2017-07-17] MEDS ORDERED: ZINC OXIDE 40% OINT 60 GM TUBE TOPICAL PRN (14:45)
[2017-07-17] MEDS ORDERED: POTASSIUM CHLORIDE 20 MEQ CONTROLLED RELEASE TAB PO ONE (15:00)
[2017-07-17] MEDS ORDERED: LORazepam 2 MG/ML VIAL IV PUSH PRN (18:00)
[2017-07-18] VITALS (9 sets, daily range): BP systolic 101–182; BP diastolic 52–73; PULSE 53–70; RESP 16–20; TEMP 97.1–98.2; O2SAT 91–97
[2017-07-18] MEDS: LEVOTHYROXINE SODIUM 100 MCG TAB PO SCH (05:19)
[2017-07-18] MEDS: INSULIN ASPART SUPPLEMENTAL SCALE SQ SCH ×4 (07:39→21:00)
[2017-07-18 08:29] LABS: BICARBONATE 27.8 MEQ/L (21.0-32.0); POTASSIUM 4.3 MEQ/L (3.5-5.1)
[2017-07-18] MEDS: RESP: ALBUTEROL 2.5 MG/IPRATROPIUM 0.5 MG NEB (SCH) NEB ×3 (08:35→20:35)
[2017-07-18] MEDS: LACTOBACILLUS ACIDOPHILUS TAB PO SCH ×2 (09:32→21:25)
[2017-07-18] MEDS: VALSARTAN 160 MG TAB PO SCH (09:32)
[2017-07-18] MEDS: HYDROCHLOROTHIAZIDE 12.5 MG CAP PO SCH (09:32)
[2017-07-18] MEDS: FUROSEMIDE 40 MG TAB PO SCH (09:32)
[2017-07-18] MEDS: metFORMIN HCL 500 MG TAB PO SCH (09:34)
[2017-07-18] MEDS: AZTREONAM INJ 2,000 MG in SODIUM CHLORIDE 0.9% INJ 100 ML IV SCH ×2 (09:38→21:25)
[2017-07-18] MEDS: SODIUM CHLORIDE 0.9% FLUSH 10 ML FLUSH IV FLUSH SCH ×2 (09:38→21:00)
[2017-07-18] MEDS: ASPIRIN EC 81 MG TABEC PO SCH (09:38)
[2017-07-18] MEDS: LEVOFLOXACIN 750 MG TAB PO SCH (09:39)
[2017-07-18] MEDS: POTASSIUM CHLORIDE 10 MEQ CAP PO SCH ×2 (09:39→21:25)
[2017-07-18] MEDS: METOPROLOL TARTRATE 50 MG TAB PO SCH ×2 (09:39→21:00)
--- NOTE | 2017-07-18 15:25 | HHI.PR ---
Subjective Remarks Patient wants to go back to [facility] which is her SNF Discussed with patient and friend in the room. Hopefully can go back to SNF in the next 24-48 hours We'll get a.m. labs Continue physical therapy and occupational therapy Objective Vitals Vital Signs Date Time Temp Pulse Resp B/P (MAP) Pulse Ox O2 Delivery O2 Flow Rate FiO2 07/18/17 12:00 97.4 56 17 130/59 (82) 95 07/18/17 11:26 57 07/18/17 09:56 Nasal Cannula 4.00 07/18/17 08:35 93 Nasal Cannula 4.00 07/18/17 08:00 97.7 58 17 182/73 (109) 91 07/18/17 04:00 98.0 53 16 161/69 (99) 92 07/18/17 00:00 98.2 70 16 137/63 (87) 97 07/17/17 21:15 Nasal Cannula 4.00 07/17/17 20:24 97 Nasal Cannula 4.00 07/17/17 20:00 77 07/17/17 20:00 97.7 84 17 150/62 (91) 94 07/17/17 15:56 97.2 80 20 163/68 (99) 96 I/O 07/17/17 07/17/17 07/17/17 07/18/17 07/18/17 07/18/17 07:00 15:00 23:00 07:00 15:00 23:00 Intake Total 520 ml Output Total 950 ml 700 ml 150 ml Balance -950 ml -180 ml -150 ml Intake Oral 420 ml IV Total 100 ml Output Urine Total 950 ml 700 ml 150 ml # Voids 2 1 # Bowel Movements 2 1 Result Diagram: 07/15/17 0523 07/18/17 0715 Other Results Laboratory Tests Test 07/16/17 06:01 07/17/17 08:43 07/18/17 07:15 Blood Urea Nitrogen 19 MG/DL 16 MG/DL 17 MG/DL Creatinine 0.83 MG/DL 0.74 MG/DL 0.73 MG/DL Random Glucose 117 MG/DL 90 MG/DL 128 MG/DL Calcium Level 8.8 MG/DL 8.7 MG/DL 9.0 MG/DL Magnesium Level 1.9 MG/DL 1.8 MG/DL Sodium Level 139 MEQ/L 140 MEQ/L 142 MEQ/L Potassium Level 3.4 MEQ/L 3.4 MEQ/L 4.3 MEQ/L Chloride Level 102 MEQ/L 103 MEQ/L 108 MEQ/L Carbon Dioxide Level 31.5 MEQ/L 28.9 MEQ/L 27.8 MEQ/L Anion Gap 6 MEQ/L 8 MEQ/L 6 MEQ/L Estimat Glomerular Filtration Rate 65 ML/MIN 74 ML/MIN 76 ML/MIN Imaging Last Impressions Chest X-Ray 07/14/17 0000 Signed Impressions: Service Date/Time: Friday, July 14, 2017 10:49 - CONCLUSION: 1. Stable scattered infiltrates bilaterally. 2. Stable cardiomegaly. 3. Mild degenerative changes and scoliosis of the thoracic spine. Lux Soto MD Objective Remarks GENERAL: Awake alert and oriented talkative and cooperative SKIN: Warm and dry. No obvious rashes HEAD: Atraumatic. Normocephalic. EYES: Pupils equal and round. No scleral icterus. No injection or drainage. Extraocular muscles intact ENT: No nasal bleeding or discharge. Mucous membranes pink and moist. Tongue is midline NECK: Trachea midline. No JVD. Supple CARDIOVASCULAR: Regular rate and rhythm. S1-S2 no S3-S4 no heave from the murmur no rubs or gallops RESPIRATORY: No accessory muscle use.. Breath sounds equal bilaterally. Few little rhonchi GASTROINTESTINAL: Abdomen soft, non-tender, nondistended. Hepatic and splenic margins not palpable. MUSCULOSKELETAL: Extremities without clubbing, cyanosis, or edema. No obvious deformities. NEUROLOGICAL: Awake and alert. No obvious cranial nerve deficits. Motor grossly within normal limits. Five out of 5 muscle strength in the arms and legs. Normal speech. PSYCHIATRIC: Appropriate mood and affect; insight and judgment normal. Procedures none Medications and IVs Current Medications Vancomycin HCl 1000 mg/Sodium Chloride 250 ml @ 250 mls/hr ONCE ONCE IV Last administered on 07/10/17 09:17; Start 07/10/17 at 09:15; Stop 07/10/17 at 10:14; Status DC Aztreonam 2000 mg/ Sodium Chloride 100 ml @ 200 mls/hr ONCE ONCE IV Last administered on 07/10/17 10:00; Start 07/10/17 at 09:15; Stop 07/10/17 at 09:44; Status DC Sodium Chloride 500 ml @ 500 mls/hr BOLUS ONCE IV Last administered on 10:38; Start 07/10/17 at 10:00; Stop 07/10/17 at 10:59; Status DC Aspirin (Aspirin Chew) 324 mg ONCE ONCE CHEW Last administered on 07/10/17 10: 43; Start 07/10/17 at 10:00; Stop 07/10/17 at 10:34; Status DC Sodium Chloride (NS Flush) 2 ml UNSCH PRN IV FLUSH FLUSH AFTER USING IV ACCESS Last administered on 07/15/17 21:13; Start 07/10/17 at 11:30 Sodium Chloride (NS Flush) 2 ml BID IV FLUSH Last administered on 07/18/17 09: 38; Start 07/10/17 at 21:00 Acetaminophen (Tylenol) 650 mg Q4H PRN PO TEMP > 100.4; Start 07/10/17 at 11:30 Ondansetron HCl (Zofran Inj) 4 mg Q6H PRN IVP NAUSEA OR VOMITING Last administered on 07/12/17 21:34; Start 07/10/17 at 11:30 Acetaminophen (Tylenol) 650 mg Q6H PRN PO PAIN SCALE 1 TO 2; Start 07/10/17 at 11:30 Naloxone HCl (Narcan Inj) 0.4 mg UNSCH PRN IV SEE LABEL COMMENTS; Start at 11:30 Albuterol/ Ipratropium (Duoneb Neb) 1 ampule Q2HR NEB PRN NEB SOB/WHEEZING Last administered on 07/16/17 16:47; Start 07/10/17 at 11:30; Stop 07/17/17 at 02:17; Status DC Dextrose (D50w (Vial) Inj) 50 ml UNSCH PRN IV HYPOGLYCEMIA-SEE COMMENTS; Start 07/10/17 at 12:15 Glucagon (Glucagon Inj) 1 mg UNSCH PRN OTHER HYPOGLYCEMIA-SEE COMMENTS; Start 07/10/17 at 12:15 Insulin Aspart (NovoLOG SUPPLEMENTAL SCALE) 1 ACHS SLIDING SCALE SQ Last administered on 07/13/17 11:00; Start 07/10/17 at 16:00 Furosemide (Lasix) 40 mg DAILY PO Last administered on 07/18/17 09:32; Start 07/11/17 at 09:00 Levothyroxine Sodium (Synthroid) 100 mcg DAILY@0600 PO Last administered on 05:19; Start 07/11/17 at 06:00 Metformin HCl (Glucophage) 1,000 mg DAILY PO Last administered on 07/18/17 09: 34; Start 07/11/17 at 09:00 Metoprolol Tartrate (Lopressor) 25 mg BID PO Last administered on 07/11/17 20: 05; Start 07/10/17 at 21:00; Stop 07/12/17 at 08:18; Status DC Potassium Chloride (KCl) 10 meq BID PO Last administered on 07/18/17 09:39; Start 07/10/17 at 21:00 Albuterol/ Ipratropium (Duoneb Neb) 1 ampule Q6HR WHILE AWAKE NEB NEB Last administered on 07/14/17 11:58; Start 07/10/17 at 14:00; Stop 07/14/17 at 12:45 ; Status DC Pharmacy Profile Note 0 ml @ 0 mls/hr UNSCH OTHER ; Start 07/10/17 at 12:45; Stop 07/15/17 at 07:56; Status DC Vancomycin HCl 1000 mg/Sodium Chloride 250 ml @ 250 mls/hr Q24H IV ; Start 08/17 at 09:00; Stop 07/11/17 at 09:00; Status DC Aztreonam 2000 mg/ Sodium Chloride 100 ml @ 200 mls/hr Q12H IV Last administered on 07/18/17 09:38; Start 07/10/17 at 21:00 Naloxone HCl (Narcan Inj) 0.4 mg UNSCH PRN IV SEE LABEL COMMENTS; Start at 12:45; Stop 07/13/17 at 08:20; Status DC Vancomycin HCl 1250 mg/Sodium Chloride 262.5 ml @ 250 mls/hr Q36H IV Last administered on 07/14/17 23:25; Start 07/11/17 at 21:00; Stop 07/15/17 at 07:56 ; Status DC Furosemide (Lasix Inj) 40 mg ONCE ONCE IV PUSH Last administered on 07/10/17 21:28; Start 07/10/17 at 20:00; Stop 07/10/17 at 20:01; Status DC Miscellaneous Information SPECIFIC LAB TO BE ... ONCE ONCE .XX Last administered on 07/14/17 20:45; Start 07/14/17 at 20:45; Stop 07/14/17 at 20:46 ; Status DC Hydralazine HCl (Apresoline) 25 mg ONCE ONCE PO Last administered on 04:50; Start 07/12/17 at 04:00; Stop 07/12/17 at 04:02; Status DC Metoprolol Tartrate (Lopressor) 50 mg BID PO Last administered on 07/14/17 08: 15; Start 07/12/17 at 09:00; Stop 07/14/17 at 13:39; Status DC Hydralazine HCl (Apresoline Inj) 10 mg Q30M PRN IV PUSH SBP>160, DBP>90 Last administered on 07/13/17 12:27; Start 07/12/17 at 08:30 Lactobacillus Acidophilus (Lactinex) 1 tab Q12HR PO Last administered on 09:32; Start 07/13/17 at 09:00 Enalaprilat (Vasotec Inj) 2.5 mg Q6H PRN IV PUSH SBP>160, DBP>90; Start at 08:30 Clonidine (Catapres-Tts 0.1mg Patch.7d) 1 patch NOW ONCE T-DERMAL Last administered on 07/13/17 15:44; Start 07/13/17 at 15:30; Stop 07/14/17 at 13:39 ; Status DC Miscellaneous Information 1 Q7D T-DERMAL ; Start 07/13/17 at 16:00 Clonidine (Catapres-Tts 0.1mg Patch.7d) 1 patch Q7D T-DERMAL ; Start 07/20/17 at 16:00; Stop 07/20/17 at 16:00; Status DC Amlodipine Besylate (Norvasc) 10 mg DAILY PO Last administered on 07/18/17 09: 32; Start 07/14/17 at 09:30 Clonidine (Catapres) 0.1 mg Q6H PRN PO SBP>180, DBP>100, HR>65 Last administered on 07/15/17 05:07; Start 07/14/17 at 09:30 Hydralazine HCl (Apresoline) 10 mg Q6HR PRN PO SBP>160, DBP>90 Last administered on 07/15/17 01:02; Start 07/14/17 at 09:30 Albuterol/ Ipratropium (Duoneb Neb) 1 ampule Q6HR WHILE AWAKE NEB NEB Last administered on 07/17/17 08:45; Start 07/14/17 at 14:00; Stop 07/17/17 at 12:38 ; Status DC Metoprolol Tartrate (Lopressor) 100 mg BID PO Last administered on 07/18/17 09 :39; Start 07/14/17 at 21:00 Valsartan (Diovan) 160 mg DAILY PO Last administered on 07/14/17 17:57; Start 07/14/17 at 16:00; Stop 07/15/17 at 08:22; Status DC Clonidine (Catapres-Tts 0.2 Mg Patch.7d) 1 patch Q7D T-DERMAL ; Start 07/20/17 at 16:00 Potassium Chloride (KCl) 40 meq ONCE ONCE PO Last administered on 07/15/17 11 :04; Start 07/15/17 at 08:00; Stop 07/15/17 at 08:48; Status DC Levofloxacin/ Dextrose 150 ml @ 100 mls/hr Q24H IV ; Start 07/15/17 at 08:00; Stop 07/15/17 at 08:14; Status DC Hydrochlorothiazide (Hydrodiuril) 25 mg DAILY PO ; Start 07/15/17 at 09:00; Stop 07/15/17 at 09:00; Status DC Hydrochlorothiazide (Microzide) 12.5 mg DAILY PO Last administered on 09:32; Start 07/15/17 at 09:00 Levofloxacin (Levaquin) 750 mg DAILY PO Last administered on 07/18/17 09:39; Start 07/15/17 at 09:00 Valsartan (Diovan) 320 mg DAILY PO Last administered on 07/18/17 09:32; Start 07/15/17 at 09:00 Aspirin (Ecotrin Ec) 81 mg DAILY PO Last administered on 07/18/17 09:38; Start 07/15/17 at 09:00 Lorazepam (Ativan Inj) 0.5 mg Q8H PRN IV PUSH ANXIETY Last administered on 07/15 21:12; Start 07/15/17 at 11:45; Stop 07/16/17 at 10:34; Status DC Potassium Chloride (KCl) 40 meq ONCE ONCE PO ; Start 07/16/17 at 10:00; Stop at 10:35; Status DC Potassium Chloride 100 ml @ 50 mls/hr Q2H IV Last administered on 07/16/17 13 :49; Start 07/16/17 at 11:00; Stop 07/16/17 at 14:59; Status DC Lorazepam (Ativan Inj) 0.5 mg ONCE ONCE IV PUSH ; Start 07/16/17 at 22:15; Stop 07/16/17 at 22:16; Status DC Albuterol/ Ipratropium (Duoneb Neb) 1 ampule Q4HR NEB PRN NEB WHEEZING; Start 07/17/17 at 02:30; Stop 07/17/17 at 04:20; Status DC Albuterol/ Ipratropium (Duoneb Neb) 1 ampule TID NEB NEB Last administered on 07/18/17 12:18; Start 07/17/17 at 14:00 Zinc Oxide (Desitin 40% Oint) 1 applic UNSCH PRN TOPICAL DIAPER RASH Last administered on 07/18/17 09:37; Start 07/17/17 at 14:45 Potassium Chloride (KCl) 40 meq ONCE ONCE PO Last administered on 07/17/17 15 :48; Start 07/17/17 at 15:00; Stop 07/17/17 at 15:01; Status DC Lorazepam (Ativan Inj) 0.25 mg ONCE PRN IV PUSH SEVERE ANXIETY Last administered on 07/17/17 21:22; Start 07/17/17 at 18:00; Stop 07/20/17 at 17:59 Urinary Catheter: No Vascular Central Line Catheter: No A/P Problem List: (1) Acute metabolic encephalopathy ICD Code: G93.41 - Metabolic encephalopathy (2) Respiratory failure with hypoxia ICD Code: J96.91 - Respiratory failure, unspecified with hypoxia Status: Acute (3) HCAP (healthcare-associated pneumonia) ICD Code: J18.9 - Pneumonia, unspecified organism (4) Lactic acid acidosis ICD Code: E87.2 - Acidosis (5) Hypothyroidism ICD Code: E03.9 - Hypothyroidism, unspecified (6) Diabetes mellitus, type 2 ICD Code: E11.9 - Type 2 diabetes mellitus without complications Assessment and Plan 87-year-old female with Acute respiratory failure with hypoxia-improving Healthcare associated pneumonia Initial Chest x-ray with evidence of pulmonary infiltrate right lung. Repeat X-ray stable. Initial ABG with evidence of hypoxia Currently on NC 3-4L s/p vancomycin and Azactam; cultures so far negative to date. now on po levaquin to minimize use of IVs as pt has poor IV access and continue azactam for now. Treat for one more day then d/c abx. Pt did miss one full day of abx due to poor venous access secondary to agitation. urinary pneumococcal and Legionella antigen as well as flu antigen all negative continue scheduled DuoNeb, try to wean oxygen, maintain oxygen saturation above 92%. pulm following and appreciate recs Metabolic encephalopathy-resolved most likely secondary to pneumonia versus respiratory failure/hypoxia versus others Avoid all [employer] depressant medication. off ativan, keep off restraints as much as possible. EEG noted in review Elevated troponin I 0.26-->0.3-->0.40. Pt poor historian. Cards following, appreciate recs. Pt' s BPs much better controlled w HCTZ in addition to other BP meds. . Hypertension urgency Continue Lopressor 50 mg by mouth twice a day, po hydralazine and clonidine prn, amlodipine 10mg po daily and HCTZ 12.5mg po daily. Lactic acidosis Secondary to above infectious process Monitor lactic acid Acute renal failure-resolved Patient baseline not known Continue gentle IV fluid hydration, however monitor for sign of volume overload If The patient still has access Diabetes type 2 Continue insulin sliding scale and outpatient medications History of CHF Chest x-ray without any evidence of pulmonary congestion despite elevated BNP. Continue Lasix ECHO shows EF 65-70% w grade one diastolic dysfunction Hypothyroidism Continue Synthroid TSH and free T4 noted DVT prophylaxis: Bilateral SCDs Pt is much better today, she is alert and oriented. Will try to keep off restraints, wean down oxygen, get aggressive PT and consider discharging her to SNF in the next 1-2 days. She should be completing abx tomorrow. add zinc oxide to skin (buttock) Problem Qualifiers (1) Respiratory failure with hypoxia: Qualified Codes: J96.01 - Acute respiratory failure with hypoxia Alton Hollis DO Jul 18, 2017 15:25
[2017-07-18] MEDS ORDERED: LORazepam 2 MG/ML VIAL IV PUSH PRN (21:00)
[2017-07-19] VITALS: BP 127/58; PULSE 72; RESP 20; TEMP 98.5; O2SAT 97
[2017-07-19 04:00] VITALS: BP 155/67; PULSE 68; RESP 22; TEMP 97.5; O2SAT 93
[2017-07-19] MEDS: LEVOTHYROXINE SODIUM 100 MCG TAB PO SCH (05:33)
[2017-07-19] MEDS: RESP: ALBUTEROL 2.5 MG/IPRATROPIUM 0.5 MG NEB (SCH) NEB ×2 (07:33→13:15)
[2017-07-19] MEDS: INSULIN ASPART SUPPLEMENTAL SCALE SQ SCH ×3 (08:00→17:00)
[2017-07-19 08:08] VITALS: BP_SYST 123; BP_SYST 163; BP_DIAS 58; BP_DIAS 70; PULSE 68; PULSE 71; RESP 18; TEMP 98.2; TEMP 98.5; O2SAT 96
[2017-07-19 08:20] VITALS: PULSE 67
[2017-07-19] MEDS: METOPROLOL TARTRATE 50 MG TAB PO SCH (09:15)
[2017-07-19] MEDS: HYDROCHLOROTHIAZIDE 12.5 MG CAP PO SCH (09:15)
[2017-07-19] MEDS: VALSARTAN 160 MG TAB PO SCH (09:16)
[2017-07-19] MEDS: LACTOBACILLUS ACIDOPHILUS TAB PO SCH (09:16)
[2017-07-19] MEDS: POTASSIUM CHLORIDE 10 MEQ CAP PO SCH (09:16)
[2017-07-19] MEDS: metFORMIN HCL 500 MG TAB PO SCH (09:16)
[2017-07-19] MEDS: ASPIRIN EC 81 MG TABEC PO SCH (09:16)
[2017-07-19] MEDS: SODIUM CHLORIDE 0.9% FLUSH 10 ML FLUSH IV FLUSH SCH (09:17)
[2017-07-19] MEDS: FUROSEMIDE 40 MG TAB PO SCH (09:17)
[2017-07-19] MEDS: LEVOFLOXACIN 750 MG TAB PO SCH (09:28)
[2017-07-19] MEDS: AZTREONAM INJ 2,000 MG in SODIUM CHLORIDE 0.9% INJ 100 ML IV SCH (09:46)
[2017-07-19] MEDS: ONDANSETRON HCL 4 MG/2 ML VIAL IVP PRN (09:46)
[2017-07-19 10:43] LABS: AUTOMATED NEUTROPHIL # 7.6 TH/MM3 (1.8-7.7); BASOPHIL # 0.1 TH/MM3 (0-0.2); BASOPHIL % 0.6 % (0.0-2.0); EOSINOPHIL # 0.2 TH/MM3 (0-0.4); EOSINOPHIL % 1.9 % (0.0-4.0); HEMATOCRIT 40.3 % (35.0-46.0); HEMO FLAGS DIFF FINAL; LYMPH % 9.2 % (9.0-44.0); LYMPHOCYTE # 0.9 TH/MM3 (1.0-4.8); MEAN CELL VOLUME 87.3 FL (80.0-100.0); MEAN CORPUSCULAR HEMOGLOBIN 28.3 PG (27.0-34.0); MEAN CORPUSCULAR HGB CONC 32.4 % (32.0-36.0); MONO % 5.9 % (0.0-8.0); NEUT % 82.4 % (16.0-70.0); PLATELET COUNT 361 TH/MM3 (150-450); RED BLOOD COUNT 4.62 MIL/MM3 (4.00-5.30); RED CELL DISTRIBUTION WIDTH 16.9 % (11.6-17.2); WHITE BLOOD COUNT 9.3 TH/MM3 (4.0-11.0)
[2017-07-19 10:55] LABS: ALT (GPT) 31 U/L (10-53); ANION GAP 5 MEQ/L (5-15); AST (GOT) 80 U/L (15-37); BLOOD UREA NITROGEN 18 MG/DL (7-18); CHLORIDE 106 MEQ/L (98-107); GLOMERULAR FILTRATION RATE 64 ML/MIN (>89); MAGNESIUM 1.9 MG/DL (1.5-2.5); POTASSIUM 3.6 MEQ/L (3.5-5.1); SODIUM (NA) 139 MEQ/L (136-145)
[2017-07-19 11:04] LABS: ALKALINE PHOSPHATASE 169 U/L (45-117); FREE T4 1.24 NG/DL (0.76-1.46); TOTAL BILIRUBIN ADULT 0.8 MG/DL (0.2-1.0)
[2017-07-19 12:08] VITALS: BP 123/58; PULSE 71; RESP 18; TEMP 98.5; O2SAT 96
--- NOTE | 2017-07-19 15:05 | HHI.PR ---
Subjective Remarks Patient wants to go back to [facility] which is her SNF Discussed with patient and friend in the room. Hopefully can go back to SNF in the next 24-48 hours We'll get a.m. labs Continue physical therapy and occupational therapy 07-19 wants to go back to [facility] WILL DC BACK TO HER SNF BED IS AVAILABLE Objective Vitals Vital Signs Date Time Temp Pulse Resp B/P (MAP) Pulse Ox O2 Delivery O2 Flow Rate FiO2 07/19/17 08:20 67 07/19/17 08:08 98.2 68 18 163/70 (101) 96 07/19/17 08:00 93 Nasal Cannula 4.00 07/19/17 04:00 97.5 68 22 155/67 (96) 93 07/19/17 04:00 Nasal Cannula 4.00 07/19/17 01:27 16 07/19/17 00:00 97 Nasal Cannula 4.00 07/19/17 00:00 98.5 72 20 127/58 (81) 97 07/18/17 21:25 Nasal Cannula 4.00 07/18/17 20:37 94 Nasal Cannula 4.00 07/18/17 20:00 64 07/18/17 20:00 97.2 63 20 101/52 (68) 96 07/18/17 16:00 97.1 64 17 119/59 (79) 91 I/O 07/18/17 07/18/17 07/18/17 07/19/17 07/19/17 07/19/17 07:00 15:00 23:00 07:00 15:00 23:00 Intake Total 220 ml 180 ml 100 ml Output Total 150 ml 250 ml Balance -150 ml 220 ml -70 ml 100 ml Intake Oral 120 ml 180 ml IV Total 100 ml 100 ml Output Urine Total 150 ml 250 ml # Voids 1 5 # Bowel Movements 2 Result Diagram: 07/19/17 1007 07/19/17 1007 Other Results Laboratory Tests Test 07/17/17 08:43 07/18/17 07:15 07/19/17 10:07 Blood Urea Nitrogen 16 MG/DL 17 MG/DL 18 MG/DL Creatinine 0.74 MG/DL 0.73 MG/DL 0.84 MG/DL Random Glucose 90 MG/DL 128 MG/DL 148 MG/DL Calcium Level 8.7 MG/DL 9.0 MG/DL 9.7 MG/DL Magnesium Level 1.8 MG/DL 1.9 MG/DL Sodium Level 140 MEQ/L 142 MEQ/L 139 MEQ/L Potassium Level 3.4 MEQ/L 4.3 MEQ/L 3.6 MEQ/L Chloride Level 103 MEQ/L 108 MEQ/L 106 MEQ/L Carbon Dioxide Level 28.9 MEQ/L 27.8 MEQ/L 28.0 MEQ/L Anion Gap 8 MEQ/L 6 MEQ/L 5 MEQ/L Estimat Glomerular Filtration Rate 74 ML/MIN 76 ML/MIN 64 ML/MIN White Blood Count 9.3 TH/MM3 Red Blood Count 4.62 MIL/MM3 Hemoglobin 13.1 GM/DL Hematocrit 40.3 % Mean Corpuscular Volume 87.3 FL Mean Corpuscular Hemoglobin 28.3 PG Mean Corpuscular Hemoglobin Concent 32.4 % Red Cell Distribution Width 16.9 % Platelet Count 361 TH/MM3 Mean Platelet Volume 8.4 FL Neutrophils (%) (Auto) 82.4 % Lymphocytes (%) (Auto) 9.2 % Monocytes (%) (Auto) 5.9 % Eosinophils (%) (Auto) 1.9 % Basophils (%) (Auto) 0.6 % Neutrophils # (Auto) 7.6 TH/MM3 Lymphocytes # (Auto) 0.9 TH/MM3 Monocytes # (Auto) 0.5 TH/MM3 Eosinophils # (Auto) 0.2 TH/MM3 Basophils # (Auto) 0.1 TH/MM3 CBC Comment DIFF FINAL Differential Comment Total Protein 6.5 GM/DL Albumin 2.7 GM/DL Phosphorus Level 3.0 MG/DL Alkaline Phosphatase 169 U/L Aspartate Amino Transf (AST/SGOT) 80 U/L Alanine Aminotransferase (ALT/SGPT) 31 U/L Total Bilirubin 0.8 MG/DL Free Thyroxine 1.24 NG/DL Thyroid Stimulating Hormone 3rd Gen 14.600 uIU/ML Imaging Last Impressions Chest X-Ray 07/14/17 0000 Signed Impressions: Service Date/Time: Friday, July 14, 2017 10:49 - CONCLUSION: 1. Stable scattered infiltrates bilaterally. 2. Stable cardiomegaly. 3. Mild degenerative changes and scoliosis of the thoracic spine. Lux Soto MD Objective Remarks GENERAL: Awake alert and oriented talkative and cooperative SKIN: Warm and dry. No obvious rashes HEAD: Atraumatic. Normocephalic. EYES: Pupils equal and round. No scleral icterus. No injection or drainage. Extraocular muscles intact ENT: No nasal bleeding or discharge. Mucous membranes pink and moist. Tongue is midline NECK: Trachea midline. No JVD. Supple CARDIOVASCULAR: Regular rate and rhythm. S1-S2 no S3-S4 no heave from the murmur no rubs or gallops RESPIRATORY: No accessory muscle use.. Breath sounds equal bilaterally. Few little rhonchi GASTROINTESTINAL: Abdomen soft, non-tender, nondistended. Hepatic and splenic margins not palpable. MUSCULOSKELETAL: Extremities without clubbing, cyanosis, or edema. No obvious deformities. NEUROLOGICAL: Awake and alert. No obvious cranial nerve deficits. Motor grossly within normal limits. 4 out of 5 muscle strength in the arms and legs. Normal speech. PSYCHIATRIC: Appropriate mood and affect; insight and judgment normal. Procedures none Medications and IVs Current Medications Vancomycin HCl 1000 mg/Sodium Chloride 250 ml @ 250 mls/hr ONCE ONCE IV Last administered on 07/10/17 09:17; Start 07/10/17 at 09:15; Stop 07/10/17 at 10:14; Status DC Aztreonam 2000 mg/ Sodium Chloride 100 ml @ 200 mls/hr ONCE ONCE IV Last administered on 07/10/17 10:00; Start 07/10/17 at 09:15; Stop 07/10/17 at 09:44; Status DC Sodium Chloride 500 ml @ 500 mls/hr BOLUS ONCE IV Last administered on 10:38; Start 07/10/17 at 10:00; Stop 07/10/17 at 10:59; Status DC Aspirin (Aspirin Chew) 324 mg ONCE ONCE CHEW Last administered on 07/10/17 10: 43; Start 07/10/17 at 10:00; Stop 07/10/17 at 10:34; Status DC Sodium Chloride (NS Flush) 2 ml UNSCH PRN IV FLUSH FLUSH AFTER USING IV ACCESS Last administered on 07/15/17 21:13; Start 07/10/17 at 11:30 Sodium Chloride (NS Flush) 2 ml BID IV FLUSH Last administered on 07/19/17 09: 17; Start 07/10/17 at 21:00 Acetaminophen (Tylenol) 650 mg Q4H PRN PO TEMP > 100.4; Start 07/10/17 at 11:30 Ondansetron HCl (Zofran Inj) 4 mg Q6H PRN IVP NAUSEA OR VOMITING Last administered on 07/19/17 09:46; Start 07/10/17 at 11:30 Acetaminophen (Tylenol) 650 mg Q6H PRN PO PAIN SCALE 1 TO 2 Last administered on 07/19/17 00:28; Start 07/10/17 at 11:30 Naloxone HCl (Narcan Inj) 0.4 mg UNSCH PRN IV SEE LABEL COMMENTS; Start at 11:30 Albuterol/ Ipratropium (Duoneb Neb) 1 ampule Q2HR NEB PRN NEB SOB/WHEEZING Last administered on 07/16/17 16:47; Start 07/10/17 at 11:30; Stop 07/17/17 at 02:17; Status DC Dextrose (D50w (Vial) Inj) 50 ml UNSCH PRN IV HYPOGLYCEMIA-SEE COMMENTS; Start 07/10/17 at 12:15 Glucagon (Glucagon Inj) 1 mg UNSCH PRN OTHER HYPOGLYCEMIA-SEE COMMENTS; Start 07/10/17 at 12:15 Insulin Aspart (NovoLOG SUPPLEMENTAL SCALE) 1 ACHS SLIDING SCALE SQ Last administered on 07/19/17 12:30; Start 07/10/17 at 16:00 Furosemide (Lasix) 40 mg DAILY PO Last administered on 07/19/17 09:17; Start 07/11/17 at 09:00 Levothyroxine Sodium (Synthroid) 100 mcg DAILY@0600 PO Last administered on 05:33; Start 07/11/17 at 06:00 Metformin HCl (Glucophage) 1,000 mg DAILY PO Last administered on 07/19/17 09: 16; Start 07/11/17 at 09:00 Metoprolol Tartrate (Lopressor) 25 mg BID PO Last administered on 07/11/17 20: 05; Start 07/10/17 at 21:00; Stop 07/12/17 at 08:18; Status DC Potassium Chloride (KCl) 10 meq BID PO Last administered on 07/19/17 09:16; Start 07/10/17 at 21:00 Albuterol/ Ipratropium (Duoneb Neb) 1 ampule Q6HR WHILE AWAKE NEB NEB Last administered on 07/14/17 11:58; Start 07/10/17 at 14:00; Stop 07/14/17 at 12:45 ; Status DC Pharmacy Profile Note 0 ml @ 0 mls/hr UNSCH OTHER ; Start 07/10/17 at 12:45; Stop 07/15/17 at 07:56; Status DC Vancomycin HCl 1000 mg/Sodium Chloride 250 ml @ 250 mls/hr Q24H IV ; Start 08/17 at 09:00; Stop 07/11/17 at 09:00; Status DC Aztreonam 2000 mg/ Sodium Chloride 100 ml @ 200 mls/hr Q12H IV Last administered on 07/19/17 09:46; Start 07/10/17 at 21:00 Naloxone HCl (Narcan Inj) 0.4 mg UNSCH PRN IV SEE LABEL COMMENTS; Start at 12:45; Stop 07/13/17 at 08:20; Status DC Vancomycin HCl 1250 mg/Sodium Chloride 262.5 ml @ 250 mls/hr Q36H IV Last administered on 07/14/17 23:25; Start 07/11/17 at 21:00; Stop 07/15/17 at 07:56 ; Status DC Furosemide (Lasix Inj) 40 mg ONCE ONCE IV PUSH Last administered on 07/10/17 21:28; Start 07/10/17 at 20:00; Stop 07/10/17 at 20:01; Status DC Miscellaneous Information SPECIFIC LAB TO BE JEFF... ONCE ONCE .XX Last administered on 07/14/17 20:45; Start 07/14/17 at 20:45; Stop 07/14/17 at 20:46 ; Status DC Hydralazine HCl (Apresoline) 25 mg ONCE ONCE PO Last administered on 04:50; Start 07/12/17 at 04:00; Stop 07/12/17 at 04:02; Status DC Metoprolol Tartrate (Lopressor) 50 mg BID PO Last administered on 07/14/17 08: 15; Start 07/12/17 at 09:00; Stop 07/14/17 at 13:39; Status DC Hydralazine HCl (Apresoline Inj) 10 mg Q30M PRN IV PUSH SBP>160, DBP>90 Last administered on 07/13/17 12:27; Start 07/12/17 at 08:30 Lactobacillus Acidophilus (Lactinex) 1 tab Q12HR PO Last administered on 09:16; Start 07/13/17 at 09:00 Enalaprilat (Vasotec Inj) 2.5 mg Q6H PRN IV PUSH SBP>160, DBP>90; Start at 08:30 Clonidine (Catapres-Tts 0.1mg Patch.7d) 1 patch NOW ONCE T-DERMAL Last administered on 07/13/17 15:44; Start 07/13/17 at 15:30; Stop 07/14/17 at 13:39 ; Status DC Miscellaneous Information 1 Q7D T-DERMAL ; Start 07/13/17 at 16:00 Clonidine (Catapres-Tts 0.1mg Patch.7d) 1 patch Q7D T-DERMAL ; Start 07/20/17 at 16:00; Stop 07/20/17 at 16:00; Status DC Amlodipine Besylate (Norvasc) 10 mg DAILY PO Last administered on 07/19/17 09: 16; Start 07/14/17 at 09:30 Clonidine (Catapres) 0.1 mg Q6H PRN PO SBP>180, DBP>100, HR>65 Last administered on 07/15/17 05:07; Start 07/14/17 at 09:30 Hydralazine HCl (Apresoline) 10 mg Q6HR PRN PO SBP>160, DBP>90 Last administered on 07/15/17 01:02; Start 07/14/17 at 09:30 Albuterol/ Ipratropium (Duoneb Neb) 1 ampule Q6HR WHILE AWAKE NEB NEB Last administered on 07/17/17 08:45; Start 07/14/17 at 14:00; Stop 07/17/17 at 12:38 ; Status DC Metoprolol Tartrate (Lopressor) 100 mg BID PO Last administered on 07/19/17 09 :15; Start 07/14/17 at 21:00 Valsartan (Diovan) 160 mg DAILY PO Last administered on 07/14/17 17:57; Start 07/14/17 at 16:00; Stop 07/15/17 at 08:22; Status DC Clonidine (Catapres-Tts 0.2 Mg Patch.7d) 1 patch Q7D T-DERMAL ; Start 07/20/17 at 16:00 Potassium Chloride (KCl) 40 meq ONCE ONCE PO Last administered on 07/15/17 11 :04; Start 07/15/17 at 08:00; Stop 07/15/17 at 08:48; Status DC Levofloxacin/ Dextrose 150 ml @ 100 mls/hr Q24H IV ; Start 07/15/17 at 08:00; Stop 07/15/17 at 08:14; Status DC Hydrochlorothiazide (Hydrodiuril) 25 mg DAILY PO ; Start 07/15/17 at 09:00; Stop 07/15/17 at 09:00; Status DC Hydrochlorothiazide (Microzide) 12.5 mg DAILY PO Last administered on 09:15; Start 07/15/17 at 09:00 Levofloxacin (Levaquin) 750 mg DAILY PO Last administered on 07/19/17 09:28; Start 07/15/17 at 09:00 Valsartan (Diovan) 320 mg DAILY PO Last administered on 07/19/17 09:16; Start 07/15/17 at 09:00 Aspirin (Ecotrin Ec) 81 mg DAILY PO Last administered on 07/19/17 09:16; Start 07/15/17 at 09:00 Lorazepam (Ativan Inj) 0.5 mg Q8H PRN IV PUSH ANXIETY Last administered on 07/15 21:12; Start 07/15/17 at 11:45; Stop 07/16/17 at 10:34; Status DC Potassium Chloride (KCl) 40 meq ONCE ONCE PO ; Start 07/16/17 at 10:00; Stop at 10:35; Status DC Potassium Chloride 100 ml @ 50 mls/hr Q2H IV Last administered on 07/16/17 13 :49; Start 07/16/17 at 11:00; Stop 07/16/17 at 14:59; Status DC Lorazepam (Ativan Inj) 0.5 mg ONCE ONCE IV PUSH ; Start 07/16/17 at 22:15; Stop 07/16/17 at 22:16; Status DC Albuterol/ Ipratropium (Duoneb Neb) 1 ampule Q4HR NEB PRN NEB WHEEZING; Start 07/17/17 at 02:30; Stop 07/17/17 at 04:20; Status DC Albuterol/ Ipratropium (Duoneb Neb) 1 ampule TID NEB NEB Last administered on 07/18/17 20:35; Start 07/17/17 at 14:00 Zinc Oxide (Desitin 40% Oint) 1 applic UNSCH PRN TOPICAL DIAPER RASH Last administered on 07/18/17 09:37; Start 07/17/17 at 14:45 Potassium Chloride (KCl) 40 meq ONCE ONCE PO Last administered on 07/17/17 15 :48; Start 07/17/17 at 15:00; Stop 07/17/17 at 15:01; Status DC Lorazepam (Ativan Inj) 0.25 mg ONCE PRN IV PUSH SEVERE ANXIETY Last administered on 07/17/17 21:22; Start 07/17/17 at 18:00; Stop 07/18/17 at 15:38 ; Status DC Lorazepam (Ativan Inj) 0.25 mg HS PRN IV PUSH SEVERE ANXIETY Last administered on 07/18/17 21:28; Start 07/18/17 at 21:00 Urinary Catheter: No Vascular Central Line Catheter: No A/P Problem List: (1) Acute metabolic encephalopathy ICD Code: G93.41 - Metabolic encephalopathy (2) Respiratory failure with hypoxia ICD Code: J96.91 - Respiratory failure, unspecified with hypoxia Status: Acute (3) HCAP (healthcare-associated pneumonia) ICD Code: J18.9 - Pneumonia, unspecified organism (4) Lactic acid acidosis ICD Code: E87.2 - Acidosis (5) Hypothyroidism ICD Code: E03.9 - Hypothyroidism, unspecified (6) Diabetes mellitus, type 2 ICD Code: E11.9 - Type 2 diabetes mellitus without complications Assessment and Plan 87-year-old female with Acute respiratory failure with hypoxia-improving Healthcare associated pneumonia Initial Chest x-ray with evidence of pulmonary infiltrate right lung. Repeat X-ray stable. Initial ABG with evidence of hypoxia Currently on NC 3-4L s/p vancomycin and Azactam; cultures so far negative to date. now on po levaquin to minimize use of IVs as pt has poor IV access and continue azactam for now. Treat for one more day then d/c abx. Pt did miss one full day of abx due to poor venous access secondary to agitation. urinary pneumococcal and Legionella antigen as well as flu antigen all negative continue scheduled DuoNeb, try to wean oxygen, maintain oxygen saturation above 92%. pulm following and appreciate recs Metabolic encephalopathy-resolved most likely secondary to pneumonia versus respiratory failure/hypoxia versus others Avoid all [employer] depressant medication. off ativan, keep off restraints as much as possible. EEG noted in review Elevated troponin I 0.26-->0.3-->0.40. Pt poor historian. Cards following, appreciate recs. Pt' s BPs much better controlled w HCTZ in addition to other BP meds. . Hypertension urgency Continue Lopressor 50 mg by mouth twice a day, po hydralazine and clonidine prn, amlodipine 10mg po daily and HCTZ 12.5mg po daily. Lactic acidosis Secondary to above infectious process Monitor lactic acid Acute renal failure-resolved Patient baseline not known Continue gentle IV fluid hydration, however monitor for sign of volume overload If The patient still has access Diabetes type 2 Continue insulin sliding scale and outpatient medications History of CHF Chest x-ray without any evidence of pulmonary congestion despite elevated BNP. Continue Lasix ECHO shows EF 65-70% w grade one diastolic dysfunction Hypothyroidism Continue Synthroid TSH and free T4 noted DVT prophylaxis: Bilateral SCDs Pt is much better today, she is alert and oriented. Will try to keep off restraints, wean down oxygen, get aggressive PT and consider discharging her to SNF in the next 1-2 days. She should be completing abx tomorrow. add zinc oxide to skin (buttock) Problem Qualifiers (1) Respiratory failure with hypoxia: Qualified Codes: J96.01 - Acute respiratory failure with hypoxia Alton Hollis DO Jul 19, 2017 15:05
[2017-07-19] MEDS ORDERED: DIOV160T6 PO (15:13)
[2017-07-19] MEDS ORDERED: ASPI-99 PO (15:13)
[2017-07-19] MEDS ORDERED: ALPR.25 PO (15:13)
[2017-07-19] MEDS ORDERED: LEVA750T9 PO (15:13)
[2017-07-19] MEDS ORDERED: CLON.2T T-DERMAL (15:13)
[2017-07-19] MEDS ORDERED: HYDR-3366 PO (15:13)
[2017-07-19] MEDS ORDERED: HYDR12.57 PO (15:13)
[2017-07-19] MEDS ORDERED: AMLO10 PO (15:13)
[2017-07-19] MEDS ORDERED: IPRASOL NEB (15:13)
[2017-07-19] MEDS ORDERED: METO-309 PO (15:13)
[2017-07-19] MEDS ORDERED: LACT PO (15:13)
[2017-07-19] MEDS ORDERED: ZINC40PS TOPICAL (15:13)
--- NOTE | 2017-07-19 15:16 | HHI.DS ---
Discharge Summary Admission Date Jul 10, 2017 at 10:23 Discharge Date: Jul 19, 2017 Admitting Diagnosis Hypoxic respiratory failure, PNA. (1) Acute metabolic encephalopathy ICD Code: G93.41 - Metabolic encephalopathy Diagnosis: Secondary (2) Respiratory failure with hypoxia ICD Code: J96.91 - Respiratory failure, unspecified with hypoxia Diagnosis: Principal Status: Acute (3) HCAP (healthcare-associated pneumonia) ICD Code: J18.9 - Pneumonia, unspecified organism Diagnosis: Principal (4) Lactic acid acidosis ICD Code: E87.2 - Acidosis Diagnosis: Secondary (5) Hypothyroidism ICD Code: E03.9 - Hypothyroidism, unspecified Diagnosis: Secondary (6) Diabetes mellitus, type 2 ICD Code: E11.9 - Type 2 diabetes mellitus without complications Diagnosis: Secondary Procedures none Brief History - From Admission Patient although can open her eyes she is unable to communicate at this time during my exam and history is obtained from ED report and chart review below: "Patient is an 87-year-old female [facility] evaluation of hypoxia. 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 She cannot provide any history. Per EMS the patient's sats of been in the 90s and they have been giving her breathing treatments all day yesterday and this was unsuccessful so the called 911 this morning. EMS arrived to find the patient with a room air saturation of 85%. They administered Lasix 80 mg as well as 2 DuoNeb's prior to arrival. No fever reported by EMS. CBC/BMP: 07/19/17 1007 07/19/17 1007 Significant Findings Laboratory Tests Test 07/17/17 08:43 07/18/17 07:15 07/19/17 10:07 Potassium Level 3.4 MEQ/L (3.5-5.1) Estimat Glomerular Filtration Rate 74 ML/MIN (>89) 76 ML/MIN (>89) 64 ML/MIN (>89) Random Glucose 128 MG/DL (74-106) 148 MG/DL (74-106) Chloride Level 108 MEQ/L (98-107) Neutrophils (%) (Auto) 82.4 % (16.0-70.0) Lymphocytes # (Auto) 0.9 TH/MM3 (1.0-4.8) Albumin 2.7 GM/DL (3.4-5.0) Alkaline Phosphatase 169 U/L (45-117) Aspartate Amino Transf (AST/SGOT) 80 U/L (15-37) Thyroid Stimulating Hormone 3rd Gen 14.600 uIU/ML (0.358-3.740) Imaging Last Impressions Chest X-Ray 07/14/17 0000 Signed Impressions: Service Date/Time: Wednesday, July 14, 2017 10:49 - CONCLUSION: 1. Stable scattered infiltrates bilaterally. 2. Stable cardiomegaly. 3. Mild degenerative changes and scoliosis of the thoracic spine. Lux Soto MD PE at Discharge GENERAL: Awake alert and oriented talkative and cooperative SKIN: Warm and dry. No obvious rashes HEAD: Atraumatic. Normocephalic. EYES: Pupils equal and round. No scleral icterus. No injection or drainage. Extraocular muscles intact ENT: No nasal bleeding or discharge. Mucous membranes pink and moist. Tongue is midline NECK: Trachea midline. No JVD. Supple CARDIOVASCULAR: Regular rate and rhythm. S1-S2 no S3-S4 no heave from the murmur no rubs or gallops RESPIRATORY: No accessory muscle use.. Breath sounds equal bilaterally. Few little rhonchi GASTROINTESTINAL: Abdomen soft, non-tender, nondistended. Hepatic and splenic margins not palpable. MUSCULOSKELETAL: Extremities without clubbing, cyanosis, or edema. No obvious deformities. NEUROLOGICAL: Awake and alert. No obvious cranial nerve deficits. Motor grossly within normal limits. 4 out of 5 muscle strength in the arms and legs. Normal speech. PSYCHIATRIC: Appropriate mood and affect; insight and judgment normal. Hospital Course Patient although can open her eyes she is unable to communicate at this time during my exam and history is obtained from ED report and chart review below: "Patient is an 87-year-old female [facility] for evaluation of hypoxia. 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 She cannot provide any history. Per EMS the patient's sats of been in the 90s and they have been giving her breathing treatments all day yesterday and this was unsuccessful so the called 911 this morning. EMS arrived to find the patient with a room air saturation of 85%. They administered Lasix 80 mg as well as 2 DuoNeb's prior to arrival. No fever reported by EMS." MEDS WERE ADJUSTED SEEN BY ID AND MEDICINE TREATED WITH IV ANTIBIOTICS IMPROVED SWITCHED TO PO ANTIBIOTICS NEEDS PT AND OT AT [facility] CONTINUE CURRENT TREATMENTS [id number] FILLED OUT Pt Condition on Discharge: Stable Discharge Disposition: Discharge to SNF Discharge Time: > 30 minutes Discharge Instructions DIET: Follow Instructions for: Heart Healthy Diet, Pureed Diet Speech Therapy-Diet Recommends: Pureed Activities you can perform: Weight Bearing as Ana Lilia New Medications: Amlodipine (Norvasc) 10 Mg Tab 10 MG PO DAILY for Blood Pressure Management, #[address] (Adult Aspirin EC Low Strength) 81 Mg Tabec 81 MG PO DAILY for Blood Clot Prevention, #30 TAB Clonidine 168 HR Patch ([id number] 168 HR Patch) 0.2 Mg/24 Hr Patch 1 PATCH T-DERMAL Q7D for Blood Pressure Management, #5 PATCH Hydrochlorothiazide (Hydrochlorothiazide) 12.5 Mg Cap 12.5 MG PO DAILY for Blood Pressure Management, #30 CAP Ipratropium-Albuterol Neb (Duoneb) 0.5-2.5 Mg/3 Ml Neb 1 AMPULE NEB TID NEB for Breathing Treatment, #180 ML Lactobacillus Acidophilus (Acidophilus/l-Sporogenes) 35 Million Cell-25 Million Cell Tab 1 TAB PO TID for Indigestion, #90 TAB Levofloxacin (Levaquin) 750 Mg Tablet 750 MG PO Q48H for Infection, #3 TAB Metoprolol Tartrate (Lopressor) 50 Mg Tab 100 MG PO BID for Blood Pressure Management, #60 TAB Valsartan (Diovan) 160 Mg Tab 320 MG PO DAILY for Blood Pressure Management, #30 TAB Zinc Oxide (Topical) (Desitin Maximum Strength) 40 % Pst 1 APPLIC TOPICAL UNSCH PRN for DIAPER RASH, #1 TUBE Continued Medications: Acetaminophen (Mapap) 325 Mg Tab 650 MG PO Q4-6H PRN for INCREASED TEMPERATURE, TAB 0 Refills Albuterol Neb (Albuterol Neb) 2.5 Mg/3 Ml Neb 2.5 MG NEB TID NEB PRN for SHORTNESS OF BREATH, #60 NEBULE 0 Refills Alprazolam (Xanax) 0.25 Mg Tab 0.25 MG PO Q12HR PRN for ANXIETY, #60 TAB 0 Refills (This prescription has been renewed) Bisacodyl Supp (Bisacodyl Supp) 10 Mg Supp 10 MG RECTAL DAILY PRN for CONSTIPATION, SUPP 0 Refills Clonidine (Clonidine) 0.1 Mg Tab 0.1 MG PO Q4HR PRN for INCREASE IN BLOOD PRESSURE, #60 TAB 0 Refills Escitalopram (Escitalopram) 20 Mg Tab 20 MG PO DAILY, #30 TAB 0 Refills Furosemide (Furosemide) 40 Mg Tab 40 MG PO DAILY, #30 TAB 0 Refills Gabapentin (Gabapentin) 300 Mg Cap 600 MG PO QID, #90 CAP 0 Refills Guaifenesin-Dextromethorphan Liq (Guaifenesin DM Liq) 10-100 Mg/5 Ml Liq 10 ML PO QID PRN for COUGH, #1 BOTTLE 0 Refills Hydrocodone-Acetaminophen (Watts) 10-325 Mg Tab 1 TAB PO Q6H PRN for PAIN, #30 TAB 0 Refills (This prescription has been renewed ) Levothyroxine (Levothyroxine) 100 Mcg Tab 100 MCG PO DAILY for Thyroid, #30 TAB 0 Refills Magnesium Hydroxide Liq (Milk of Magnesia Liq) 400 Mg/5 Ml Susp 30 ML PO ONCE for Indigestion, #30 ML 0 Refills Metformin (Metformin) 500 Mg Tab 1000 MG PO DAILY for Blood Sugar Management, #30 TAB 0 Refills With a meal Mirtazapine (Mirtazapine) 30 Mg Tab 30 MG PO HS for Depression Control, #30 TAB 0 Refills Nitroglycerin SL (Nitroglycerin SL) 0.4 Mg Subl 0.4 MG SL DIRECTED PRN for CHEST PAIN, #100 TAB.SL 0 Refills ONE TABLET UNDER THE TONGUE NEEDED FOR CHEST PAIN, MAY REPEAT EVERY FIVE MINUTES FOR A TOTAL OF 3 DOSES OR CALL 911 IF NO RELIEF Potassium Chloride ER (Potassium Chloride ER) 10 Meq Cap 10 MEQ PO BID for Electrolyte Replacement, #60 CAP 0 Refills Promethazine (Promethazine) 12.5 Mg Tab 25 MG PO Q4H PRN for NAUSEA OR VOMITING, TAB 0 Refills Sennosides (Senna-Tabs) 8.6 Mg Tab 8.6 MG PO BID for Constipation, #30 TAB 0 Refills Triamcinolone Topical (Triamcinolone Topical) 0.1 % Oint 1 APPLIC TOPICAL BID for Inflammation, GM 0 Refills White Petrolatum-Mineral Oil Opth Oint 83-15% (Artificial Tears Opth Oint) 83-15 % Oint 1 APPLIC EACH EYE HS for Dry Eye, #3.5 GM 0 Refills Pull down lower eyelid & apply 1/4 inch to inside of eyelid. Discontinued Medications: Metoprolol Tartrate (Metoprolol Tartrate) 25 Mg Tab 25 MG PO BID, #60 TAB 0 Refills Alton Hollis DO Jul 19, 2017 15:16
[2017-07-19 16:08] VITALS: BP 129/58; PULSE 64; RESP 18; TEMP 98.3; O2SAT 95
[2017-07-19 17:05] LABS: HEMOGLOBIN A1a 1.1 %; HEMOGLOBIN A1b 2.2 %; HEMOGLOBIN Ao 83.2 %; HEMOGLOBIN LA1C 2.4 %; HEMOGLOBIN P3 4.4 %
[2017-07-20] MEDS ORDERED: cloNIDine HCL 0.2 MG/24 HR PATCH T-DERMAL SCH (16:00)
[2017-07-20] MEDS ORDERED: cloNIDine HCL 0.1 MG/24 HR PATCH T-DERMAL SCH (16:00)
[2017-07-21] MEDS ORDERED: LEVOFLOXACIN 750 MG TAB PO SCH (09:00)
== END 2017-07-19 19:10 | DRG 190 ==
LOC: NEPE 08:24 → NEDA 10:23 → HIMN 13:10 → N04A 07-16 18:12
PROVIDERS: ADMIT Hospitalist; ATTEND Hospitalist
DX: J44.0 Chronic obstructive pulmonary disease with (acute) lower respiratory infection (principal); J18.9 Pneumonia, unspecified organism; J96.21 Acute and chronic respiratory failure with hypoxia; G93.41 Metabolic encephalopathy; N17.9 Acute kidney failure, unspecified; I11.0 Hypertensive heart disease with heart failure; E87.2 Acidosis; F03.90 Unspecified dementia, unspecified severity, without behavioral disturbance, psychotic disturbance, mood disturbance, and anxiety; I50.9 Heart failure, unspecified; E11.9 Type 2 diabetes mellitus without complications; Z66 Do not resuscitate; Y95 Nosocomial condition; Z79.84 Long term (current) use of oral hypoglycemic drugs; E03.9 Hypothyroidism, unspecified; Z78.1 Physical restraint status; I16.0 Hypertensive urgency
CPT/HCPCS: 36600; 51702; 71010; 76937; 80048; 80053; 80202; 81001; 82550; 82565; 82805; 82948; 83036; 83605; 83735; 83880; 84100; 84439; 84443; 84484; 85007; 85025; 85027; 85610; 85730; 87040; 87086; 87449; 87641; 87804; 93005; 93306; 94640; 94664; 95819; 96365; J0360; J1815; J1940; J2060; J2405; J3370; J3480; J7040; J7050